=== PATIENT | female | born 1975 | race Caucasian/White ===

== ENCOUNTER → 2021-05-08 | Outpatient (CLI) | payer SELFPAY | END | disposition home or self-care (01) | LOC: LABSPEC 15:58 | PROVIDERS: Visit Provider Obstetrics & Gynecology | DX: N76.1 Subacute and chronic vaginitis (principal); Z12.4 Encounter for screening for malignant neoplasm of cervix | CPT/HCPCS: 87070; 87075; 87077; 87186; 87205; 88175; G0145 ==

== ENCOUNTER → 2023-10-08 | Outpatient (CLI) | payer BC, SELFPAY ==
[2023-10-08 16:17] LABS: Absolute Lymphocyte Count 1.36 X10^3/uL (0.83-4.51); Absolute Neutrophil Count 4.5 X10^3/uL (2.0-7.7); Basophil# 0.04 X10^3/uL; Basophil% 0.6 % (0-1); Eosinophil# 0.61 X10^3/uL; Eosinophils% 8.8 % (0-5); Hemoglobin 10.3 g/dL (12.0-15.0); Lymphocyte # 1.36 X10^3/ul (0.83-4.51); Lymphocyte % 19.5 % (19-41); Mean Corp Hgb Conc 30.3 g/dL (32-36); Mean Corpuscular Hgb 22.2 pg (27.0-32.0); Mean Corpuscular Volume 73.4 fL (81-99); Mean Platelet Vol. 10.2 fl (6.2-12.0); Monocyte# 0.46 X10^3/uL; Monocyte% 6.6 % (0-10); NRBC Flagged by Analyzer 0 % (0-5); Neutrophil # 4.46 X10^3/uL (2.7-7.7); Neutrophil % 64.1 % (47-70); Platelet Count 356 K/mm3 (150-450); RBC Distribution Width CV 17.9 % (11.6-14.6); RBC Distribution Width SD 47.5 fl (35.1-43.9); Red Blood Count 4.63 M/mm3 (4.2-5.4)
[2023-10-08 16:46] LABS: Erythrocyte Sedimentation Rate 5 mm/hr (0-30)
[2023-10-08 17:04] LABS: Vitamin B12 407 pg/mL (211-911)
[2023-10-08 17:30] LABS: AST(SGOT) 23 U/L (15-37); Alanine Aminotransfer ALT/SGPT 26 U/L (13-56); Albumin, Serum 3.7 g/dL (3.2-5.0); Alkaline Phosphatase 59 U/L (45-117); Anion Gap 5 (5-15); BUN 12 mg/dL (7-18); BUN/Creat Ratio 14.2 RATIO (10-20); CRP < 2.90 mg/L (0.0-3.0); Chloride 109 mmol/L (98-107); Creatinine, Serum 0.84 mg/dL (0.55-1.02); EST Glomerular Filtration Rate 76 mL/min (>60); Est Glom Filt Rate - Afr Amer 92 mL/min (>60); Ferritin 4 ng/mL (8-252); Globulin 3.7 g/dL (2.2-4.2); Glucose 97 mg/dL (74-106); Iron 14 ug/dL (50-170); Potassium 3.5 mmol/L (3.5-5.1); Protein, Total 7.4 g/dL (6.4-8.2); Sodium Level 138 mmol/L (136-145)
== END | disposition home or self-care (01) ==
PROVIDERS: PCP Family Medicine; Referring Provider Family Medicine; Visit Provider Family Medicine
DX: K50.90 Crohn's disease, unspecified, without complications (principal); G25.81 Restless legs syndrome; E53.8 Deficiency of other specified B group vitamins; D50.9 Iron deficiency anemia, unspecified; Z51.81 Encounter for therapeutic drug level monitoring
CPT/HCPCS: 36415; 80053; 82607; 82728; 82746; 83540; 85025; 85652; 86140

== ENCOUNTER → 2024-12-27 | Outpatient (CLI) | payer BC, SELFPAY ==
[2024-12-27 08:06] LABS: Erythrocyte Sedimentation Rate 15 mm/hr (0-30)
[2024-12-27 08:08] LABS: Absolute Lymphocyte Count 1.49 X10^3/uL (0.83-4.51); Absolute Neutrophil Count 5.3 X10^3/uL (2.0-7.7); Basophil# 0.05 X10^3/uL; Basophil% 0.6 % (0-1); Eosinophil# 0.41 X10^3/uL; Eosinophils% 5.2 % (0-5); Hematocrit 36.6 % (37-47); Hemoglobin 11.5 g/dL (12.0-15.0); Lymphocyte # 1.49 X10^3/ul (0.83-4.51); Mean Corp Hgb Conc 31.4 g/dL (32-36); Mean Corpuscular Hgb 23.1 pg (27.0-32.0); Mean Corpuscular Volume 73.5 fL (81-99); Mean Platelet Vol. 9.8 fl (6.2-12.0); Monocyte# 0.61 X10^3/uL; Monocyte% 7.8 % (0-10); NRBC Flagged by Analyzer 0 % (0-5); Neutrophil # 5.25 X10^3/uL (2.7-7.7); Neutrophil % 67.1 % (47-70); Platelet Count 348 K/mm3 (150-450); Red Blood Count 4.98 M/mm3 (4.2-5.4); White Blood Count 7.8 K/mm3 (4.4-11.0)
[2024-12-27 08:42] LABS: ALB/GLOB Ratio 1.3 RATIO (0.9-2.4); AST(SGOT) 19 U/L (<=31); Alanine Aminotransfer ALT/SGPT 13 U/L (<=34); Albumin, Serum 4.4 g/dL (3.5-5.0); Alkaline Phosphatase 71 U/L (35-104); Anion Gap 12 (5-15); BUN 16 mg/dL (4-19); BUN/Creat Ratio 14.8 RATIO (10-20); Calcium,Total 9.7 mg/dL (7.6-11.0); Carbon Dioxide 19.7 mmol/L (21.0-32.0); Chloride 106 mmol/L (98-108); Creatinine, Serum 1.07 mg/dL (0.70-1.20); EST Glomerular Filtration Rate 63 (>60); Globulin 3.3 g/dL (2.2-4.2); Glucose 95 mg/dL (70-99); Potassium 3.9 mmol/L (3.3-5.1); Protein, Total 7.6 g/dL (5.9-8.4); Sodium Level 138 mmol/L (133-145); Total Bilirubin 0.35 mg/dL (0.00-1.30); Vitamin B12 415 pg/mL (180-914); Vitamin D,25 Hydroxy 43.4 ng/mL (30-100)
[2024-12-27 11:32] LABS: CRP < 3.00 mg/L (0.0-3.0)
== END | disposition home or self-care (01) ==
PROVIDERS: PCP Family Medicine; Referring Provider Nurse Practitioner Family; Visit Provider Nurse Practitioner Family
DX: E53.8 Deficiency of other specified B group vitamins (principal); K50.90 Crohn's disease, unspecified, without complications; Z51.81 Encounter for therapeutic drug level monitoring; G25.81 Restless legs syndrome; E55.9 Vitamin D deficiency, unspecified
CPT/HCPCS: 36415; 80053; 82306; 82607; 85025; 85652; 86140

== ENCOUNTER → 2025-06-17 | Outpatient (CLI) | payer BC, SELFPAY ==
--- OUTSIDE RECORDS SUMMARY | 2025-06-17 12:31 | XMS RPT_ITS | CCD ---
Author Organization [facility] Care Team Providers Care Lacquerer Name Role Phone Unavailable Primary Care Provider Dr. Lisseth Hoffamn DO Primary Care Provider [phone] Brock [employer]AL [employer]EMAN-CAnn Attending Provider Brock ROMERO-Ann Kat Referring Provider [phone] Lisseth Queen Primary Care Unavailable Ann Gutiérrez Referring Unavailable Ann Gutiérrez Attending Unavailable Allergies Allergy Classification Reported Allergen(s) Allergy Type Date of Onset Reaction(s) Facility (7 sources) Acetaminophen / oxyCODONE Drug Allergy 0 [facility] Work Phone: (7 sources) Porcupine silk preparation Drug Allergy 0 Itching [facility] (7 sources) peanut Food Intolerance 0 Itching [facility] (3 sources) peanut allergenic extract Drug Allergy 0 Itching [facility] (4 sources) Acetaminophen Drug Allergy 7 Itching [facility] Work Phone: Medications Current Medications Medication Drug Class(es) Dates Sig (Normalized) Sig (Original) clindamycin 300 mg oral capsule (1 source) Lincosamide Antibacterial Start: 02-13-2022 End: 02-20-2022 take 1 capsule by mouth every eight hours clindamycin (CLEOCIN) 300 mg capsule Indications: Streptococcus infection, group B Take 1 capsule by mouth every 8 hours for 7 days. 21 capsule 0 02/13/2022 02/20/2022 Active Comment on above: Take 1 capsule by [facility] every 8 hours for 7 days. Ethinyl Estradiol / norgestimate (4 sources) Progestin, Estrogen Start: 04-13-2007 take 1 tablet by mouth once daily ORTHO TRI-CYCLEN LO 0.025 MG OR TABS Indications: Other general counseling and advice for contraceptive management 1 TABLET DAILY 3 3 04/13/2007 Active metroNIDAZOLE 0.0075 mg/mg vaginal gel (4 sources) Nitroimidazole Antimicrobial Start: 04-13-2007 METROGEL VAGINAL 0.75 % VA GEL Indications: Vaginitis and vulvovaginitis, unspecified 1 applicator full at bedtime for 7 days then 2x/wk qhs thereafter 1 45g tube 3 04/13/2007 Active OSTOMY SUPPLIES POUCH MISC (4 sources) Start: 08-04-2007 OSTOMY SUPPLIES POUCH MISC use as directed 1 mth supply 12 08/04/2007 Active Completed/Discontinued Medications Medication Drug Class(es) Dates Sig (Normalized) Sig (Original) atenolol 50 mg oral tablet (5 sources) beta-Adrenergic Svitlana Start: 12-12-2009 End: 04-01-2022 atenolol (TENORMIN) 50 mg tablet Take by mouth. 0 12/12/2009 04/01/2022 Discontinued Comment on above: Take one(1) tablet d aily. Take by mouth. 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 1 mg, INTRAVENOUS, ONCE, Inject 1 mg intravenously, as directed. Slow push at the appropriate time during MRI Scan 1 Each 0 09/07/2021 01/11/2022 Discontinued (Course of therapy completed) Comment on above: Inject 1 mg intraven ously one time only for 1 dose. 1 mg, INTRAVENOUS, ONCE, Inject 1 mg intravenously, as directed. Slow push at the appropriate time during MRI Scan [id number] inc-succin (FERIVA 21-7) 75 mg iron-175 mg-1 mg-12 mcg tab (3 sources) Start: 02-14-2022 [id number]-V-[id number]-B12- zinc-succin (FERIVA 21-7) 75 mg iron-175 mg-1 mg-12 mcg tab Indications: Iron deficiency anemia, unspecified iron deficiency anemia type , Low iron 1 by mouth x 21 d, then 7 d break 56 tablet 1 02/14/2022 Active Comment on above: 1 by mouth x 21 d, t hen 7 d break Multivitamin capsule (6 sources) take 1 capsule by mouth once daily Multivitamin capsule Take 1 capsule by mouth once daily. 0 Active Comment on above: Take 1 capsule by [facility] once daily. tranexamic acid 650 mg oral tablet (1 source) Antifibrinolytic Agent Start: 04-01-2022 take 2 tablets by mouth three times daily tranexamic acid (LYSTEDA) 650 mg tablet Indications: menorrhagia 2 tabs po TID for 5 days during period 90 tablet 3 04/01/2022 Active Comment on above: 2 tabs po TID for 5 days during period triamcinolone acetonide 0.001 mg/mg topical ointment (2 sources) Corticosteroid Start: 02-01-2010 End: 01-11-2022 TRIAMCINOLONE ACETONIDE 0.1 % OINTMENT apply q daily for two weeks then twice per week 1 0 02/01/2010 01/11/2022 Discontinued Comment on above: apply q daily for tw o weeks then twice per week Problems Active Problems Problem Classification Problem Date Documented Date Episodic/Chronic Abdominal pain (2 sources) Pain in female pelvis; Translations: [Pelvic and perineal pain] Episodic Benign neoplasm of uterus (2 sources) Uterine leiomyoma; Translations: [Leiomyoma of uterus, unspecified] Episodic Cardiac dysrhythmias (7 sources) Paroxysmal tachycardia; Translations: [Paroxysmal tachycardia, unspecified] 10-24-2003 Chronic Cardiac dysrhythmias (7 sources) Palpitations; Translations: [Palpitations] 10-24-2003 Episodic Deficiency and other anemia (1 source) Iron deficiency anemia; Translations: [Other iron deficiency anemias] Episodic Essential hypertension (15 sources) Benign essential hypertension; Translations: [Essential (primary) hypertension] Onset: 04-06-2006 Resolved: 04-06-2006 10-24-2003 Chronic Headache; including migraine (4 sources) Headache; Translations: [Headache] 10-06-2018 Episodic Menstrual disorders (4 sources) Irregular periods; Translations: [Irregular menstruation, unspecified] Chronic Nutritional deficiencies (1 source) Deficiency of other specified B group vitamins; Translations: [Deficiency of other specified B group vitamins] Onset: 12-29-2024 Episodic Other disorders of stomach and duodenum (1 source) Gastrointestinal fistula; 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] Episodic Other endocrine disorders (7 sources) Disorder of adrenal gland; Translations: [Disorder of adrenal gland, unspecified] Onset: 12-14-2001 10-24-2003 Chronic Other female genital disorders (1 source) Vaginal discharge; Translations: [Other specified noninflammatory disorders of vagina] Episodic Other female genital disorders (1 source) Vaginal odor; Translations: [Other specified noninflammatory disorders of vagina] Episodic Other screening for suspected conditions (not mental disorders or infectious disease) (1 source) Patient encounter status; Translations: [Encounter for screening mammogram for malignant neoplasm of breast] Episodic Ovarian cyst (1 source) Cyst of bilateral ovaries; Translations: [Unspecified ovarian cyst, right side] Episodic Regional enteritis and ulcerative colitis (16 sources) Crohn's disease of large bowel; Translations: [Crohn's disease of large intestine with fistula] Onset: 12-29-2006 Chronic Past or Other Problems Problem Classification Problem Date Documented Da te Episodic/Chronic Gastritis and duodenitis (7 sources) Acute gastritis; Translations: [Acute gastritis without bleeding] Onset: 01-02-2010 01-02-2010 Episodic Genitourinary symptoms and ill-defined conditions (4 sources) Proteinuria; Translations: [Proteinuria, unspecified] Onset: 04-06-2006 10-06-2018 Episodic Nausea and vomiting (7 sources) Nausea; Translations: [Nausea] Onset: 01-02-2010 01-02-2010 Episodic Urinary tract infections (4 sources) Urinary tract infectious disease; Translations: [Urinary tract infection, site not specified] Onset: 01-20-2006 08-16-2021 Episodic Results Test Name Value Interpretation Reference Range Facility Absolute lymphocyte countOrd ered By: Ann Gutiérrez on 12-27-2024 Lymphocytes Auto (Unsp spec) [#/Vol] 1.49 10*3/uL 0.83-4.51 [facility] Absolute neutrophil countOrd ered By: Ann Gutiérrez on 12-27-2024 Neutrophils (Bld) [#/Vol] 5.3 10*3/uL 2.0-7.7 [facility] Anion gap in Serum or Plasma Ordered By: Ann Gutiérrez on 12-27-2024 Anion gap [Moles/Vol] 12 mmol/L 5- [facility] Automated lymphocyte count a s percentage of total leukocytesOrdered By: Annjerry Gutiérrez on 12-27-2024 Lymphocytes/100 WBC Auto (Unsp spec) 19.0 % - [facility] BUN/creatinine ratioOrdered By: [place] Brock on 12-27-2024 Urea nitrogen/Creatinine [Mass ratio] 14.8 mg/mg 10- [facility] Basophil percentageOrdered B y: Ann Gutiérrez on 12-27-2024 Basophils/100 WBC (Bld) 0.6 % 0-1 [facility] Bilirubin, totalOrdered By: Annjerry Gutiérrez on 12-27-2024 Bilirubin [Mass/Vol] 0.35 mg/dL 0.00-1.30 [facility] CBC W/Diff, Automatedon 11-30 Absolute Lymph 1.49 X10 3/uL Normal 0.83-4.51 [facility] Comment on above: Performed By: #### L 503.0106, L100.0100, L501.6710, L500.4050, L101.9900, L506.1001 #### [facility] [address] [place], [address] Absolute Neut 5.3 X10 3/uL Normal 2.0-7.7 [facility] Comment on above: Performed By: #### L 503.0106, L100.0100, L501.6710, L500.4050, L101.9900, L506.1001 #### [facility] [address] [place], [address] Basophils/100 WBC (Bld) 0.6 % Normal 0-1 [facility] Comment on above: Performed By: #### L 503.0106, L100.0100, L501.6710, L500.4050, L101.9900, L506.1001 #### [facility] [address] [place], [address] Eosinophils/100 WBC (Bld) 5.2 % High 0-5 [facility] Comment on above: Performed By: #### L 503.0106, L100.0100, L501.6710, L500.4050, L101.9900, L506.1001 #### [facility] [address] [place], [address] Erythrocyte distribution width (RBC) [Ratio] 20.0 % High 11.6-14.6 [facility] Comment on above: Performed By: #### L 503.0106, L100.0100, L501.6710, L500.4050, L101.9900, L506.1001 #### [facility] [address] [place], [address] Hematocrit (Bld) [Volume fraction] 36.6 % Low 37-47 [facility] Comment on above: Performed By: #### L 503.0106, L100.0100, L501.6710, L500.4050, L101.9900, L506.1001 #### [facility] [address] [place], [address] Hemoglobin (Bld) [Mass/Vol] 11.5 g/dL Low 12.0-15.0 [facility] Comment on above: Performed By: #### L 503.0106, L100.0100, L501.6710, L500.4050, L101.9900, L506.1001 #### [facility] [address] [place], [address] IG% 0.300 Normal 0.0-0.9 [facility] Comment on above: Result Comment: IG% - Immature Granulocytes (promyelocytes, myelocytes and metamyelocytes) > 1% indicates that a LEFT SHIFT is Present. Performed By: #### L 503.0106, L100.0100, L501.6710, L500.4050, L101.9900, L506.1001 #### [facility] [address] [place], [address] Lymphocytes/100 WBC (Bld) 19.0 % Normal 19-41 [facility] Comment on above: Performed By: #### L 503.0106, L100.0100, L501.6710, L500.4050, L101.9900, L506.1001 #### [facility] [address] [place], [address] MCH (RBC) [Entitic mass] 23.1 pg Low 27.0-32.0 [facility] Comment on above: Performed By: #### L 503.0106, L100.0100, L501.6710, L500.4050, L101.9900, L506.1001 #### [facility] [address] [place], [address] MCHC (RBC) [Mass/Vol] 31.4 g/dL Low 32-36 [facility] Comment on above: Performed By: #### L 503.0106, L100.0100, L501.6710, L500.4050, L101.9900, L506.1001 #### [facility] [address] [place], [address] MCV (RBC) [Entitic vol] 73.5 fL Low 81-99 [facility] Comment on above: Performed By: #### L 503.0106, L100.0100, L501.6710, L500.4050, L101.9900, L506.1001 #### [facility] [address] [place], [address] Monocytes/100 WBC (Bld) 7.8 % Normal 0-10 [facility] Comment on above: Performed By: #### L 503.0106, L100.0100, L501.6710, L500.4050, L101.9900, L506.1001 #### [facility] [address] [place], [address] Neutrophils/100 WBC (Bld) 67.1 % Normal 47-70 [facility] Comment on above: Performed By: #### L 503.0106, L100.0100, L501.6710, L500.4050, L101.9900, L506.1001 #### [facility] [address] [place], [address] Nucleated RBC (Bld) [#/Vol] 0 10*3/uL Normal 0-5 [facility] Comment on above: Performed By: #### L 503.0106, L100.0100, L501.6710, L500.4050, L101.9900, L506.1001 #### [facility] [address] [place], [address] Platelet mean volume (Bld) [Entitic vol] 9.8 fL Normal 6.2-12.0 [facility] Comment on above: Performed By: #### L 503.0106, L100.0100, L501.6710, L500.4050, L101.9900, L506.1001 #### [facility] [address] [place], [address] Platelets (Bld) [#/Vol] 348 10*3/uL Normal 150-450 [facility] Comment on above: Performed By: #### L 503.0106, L100.0100, L501.6710, L500.4050, L101.9900, L506.1001 #### [facility] [address] [place], [address] RBC (Bld) [#/Vol] 4.98 10*6/uL Normal 4.2-5.4 [facility] Comment on above: Performed By: #### L 503.0106, L100.0100, L501.6710, L500.4050, L101.9900, L506.1001 #### [facility] [address] [place], [address] RDW SD 52.0 fl High 35.1-43.9 [facility] Comment on above: Performed By: #### L 503.0106, L100.0100, L501.6710, L500.4050, L101.9900, L506.1001 #### [facility] [address] [place], [address] WBC (Bld) [#/Vol] 7.8 10*3/uL Normal 4.4-11.0 [facility] Comment on above: Performed By: #### L 503.0106, L100.0100, L501.6710, L500.4050, L101.9900, L506.1001 #### [facility] [address] [place], [address] CRPon 12-27-2024 C-REACTIVE PROT < 3.00 Normal 0.0-3.0 [facility] Comment on above: Performed By: #### L 503.0106, L100.0100, L501.6710, L500.4050, L101.9900, L506.1001 #### [facility] [address] [place], [address] Carbon dioxide, total [Moles /volume] in Central venous bloodOrdered By: Ann Gutiérrez on 12-27-2024 CO2 [Moles/Vol] 19.7 mmol/L Low 21.0-32.0 [facility] Chloride assayOrdered By: Ra vi Gutiérrez on 12-27-2024 Chloride [Moles/Vol] 106 mmol/L 98-108 [facility] Comprehensive Metabolic Prof ilon 12-27-2024 Albumin [Mass/Vol] 4.4 g/dL Normal 3.5-5.0 [facility] Comment on above: Performed By: #### L 503.0106, L100.0100, L501.6710, L500.4050, L101.9900, L506.1001 #### [facility] [address] [place], [address] Albumin/Globulin [Mass ratio] 1.3 {ratio} Normal 0.9-2.4 [facility] Comment on above: Performed By: #### L 503.0106, L100.0100, L501.6710, L500.4050, L101.9900, L506.1001 #### [facility] [address] [place], [address] ALK PHOS 71 U/L Normal 35-104 [facility] Comment on above: Performed By: #### L 503.0106, L100.0100, L501.6710, L500.4050, L101.9900, L506.1001 #### [facility] [address] [place], [address] ALT [Catalytic activity/Vol] 13 U/L Normal <=34 [facility] Comment on above: Performed By: #### L 503.0106, L100.0100, L501.6710, L500.4050, L101.9900, L506.1001 #### [facility] [address] [place], [address] AST [Catalytic activity/Vol] 19 U/L Normal <=31 [facility] Comment on above: Performed By: #### L 503.0106, L100.0100, L501.6710, L500.4050, L101.9900, L506.1001 #### [facility] [address] [place], [address] Bilirubin [Mass/Vol] 0.35 mg/dL Normal 0.00-1.30 [facility] Comment on above: Performed By: #### L 503.0106, L100.0100, L501.6710, L500.4050, L101.9900, L506.1001 #### [facility] [address] [place], [address] BUN/CRE 14.8 RATIO Normal 10-20 [facility] Comment on above: Performed By: #### L 503.0106, L100.0100, L501.6710, L500.4050, L101.9900, L506.1001 #### [facility] [address] [place], [address] Calcium [Mass/Vol] 9.7 mg/dL Normal 7.6-11.0 [facility] Comment on above: Performed By: #### L 503.0106, L100.0100, L501.6710, L500.4050, L101.9900, L506.1001 #### [facility] [address] [place], [address] Chloride [Moles/Vol] 106 mmol/L Normal 98-108 [facility] Comment on above: Performed By: #### L 503.0106, L100.0100, L501.6710, L500.4050, L101.9900, L506.1001 #### [facility] [address] [place], [address] CO2 [Moles/Vol] 19.7 mmol/L Low 21.0-32.0 [facility] Comment on above: Performed By: #### L 503.0106, L100.0100, L501.6710, L500.4050, L101.9900, L506.1001 #### [facility] [address] [place], [address] Creatinine [Mass/Vol] 1.07 mg/dL Normal 0.70-1.20 [facility] Comment on above: Performed By: #### L 503.0106, L100.0100, L501.6710, L500.4050, L101.9900, L506.1001 #### [facility] [address] [place], [address] GAP 12 Normal 5-15 [facility] Comment on above: Performed By: #### L 503.0106, L100.0100, L501.6710, L500.4050, L101.9900, L506.1001 #### [facility] [address] [place], [address] GFR/1.73 sq M.predicted among non-blacks MDRD (S/P/Bld) [Vol rate/Area] 63 mL/min/{1.73_m2} Normal >60 [facility] Comment on above: Result Comment: mL/m in/1.73m2 CKD-EPI Creatinine Equation (2020) Performed By: #### L 503.0106, L100.0100, L501.6710, L500.4050, L101.9900, L506.1001 #### [facility] [address] [place], [address] Globulin (S) [Mass/Vol] 3.3 g/dL Normal 2.2-4.2 [facility] Comment on above: Performed By: #### L 503.0106, L100.0100, L501.6710, L500.4050, L101.9900, L506.1001 #### [facility] [address] [place], [address] Glucose [Mass/Vol] 95 mg/dL Normal 70-99 [facility] Comment on above: Performed By: #### L 503.0106, L100.0100, L501.6710, L500.4050, L101.9900, L506.1001 #### [facility] [address] [place], [address] Potassium [Moles/Vol] 3.9 mmol/L Normal 3.3-5.1 [facility] Comment on above: Performed By: #### L 503.0106, L100.0100, L501.6710, L500.4050, L101.9900, L506.1001 #### [facility] [address] [place], [address] Sodium [Moles/Vol] 138 mmol/L Normal 133-145 [facility] Comment on above: Performed By: #### L 503.0106, L100.0100, L501.6710, L500.4050, L101.9900, L506.1001 #### [facility] [address] [place], [address] T PROT 7.6 g/dL Normal 5.9-8.4 [facility] Comment on above: Performed By: #### L 503.0106, L100.0100, L501.6710, L500.4050, L101.9900, L506.1001 #### [facility] [address] [place], [address] Urea nitrogen [Mass/Vol] 16 mg/dL Normal 4-19 [facility] Comment on above: Performed By: #### L 503.0106, L100.0100, L501.6710, L500.4050, L101.9900, L506.1001 #### [facility] [address] [place], [address] Eosinophil percentageOrdered By: Ann Gutiérrez on 12-27-2024 Eosinophils/100 WBC (Bld) 5.2 % High 0-5 [facility] Erythrocyte Sed Rateon 12-27 SED RATE 15 mm/hr Normal 0-30 [facility] Comment on above: Performed By: #### L 503.0106, L100.0100, L501.6710, L500.4050, L101.9900, L506.1001 #### [facility] [place], [address] Erythrocyte distribution wid th ratioOrdered By: Ann Gutiérrez on 12-27-2024 Erythrocyte distribution width (RBC) [Ratio] 20.0 % High 11.6-14.6 [facility] Erythrocyte distribution wid th standard deviationOrdered By: [place] Brock on 12-27-2024 Erythrocyte distribution width (RBC) [Ratio] 52.0 fl High 35.1-43.9 [facility] Erythrocyte sedimentation ra teOrdered By: [facility] on [facility]-27-2024 ESR (Bld) [Velocity] 15 mm/h 0-30 [facility] Glomerular filtration rate ( GFR) estimation/1.73 sq m using serum, plasma, or whole bOrdered By: [facility] on 12-27-2024 GFR/1.73 sq M.predicted among non-blacks MDRD (S/P/Bld) [Vol rate/Area] 63 mL/min/{1.73_m2} >60 [facility] Comment on above: mL/min/1.73m2 CKD-EP I Creatinine Equation (2020) Hematocrit Auto (Bld) [Volum e fraction]Ordered By: [facility] on 12-27-2024 Hematocrit (Bld) [Volume fraction] 36.6 % Low 37-47 [facility] Hemoglobin measurementOrdere d By: [facility] on 12-27-2024 Hemoglobin (Bld) [Mass/Vol] 11.5 g/dL Low 12.0-15.0 [facility] Immature granulocytes/100 WB C Auto (Bld)Ordered By: Ann Brock on 12-27-2024 Immature granulocytes/100 WBC (Bld) 0.300 % 0.0-0.9 [facility] Comment on above: IG% - Immature Granu locytes (promyelocytes, myelocytes and metamyelocytes) > 1% indicates that a LEFT SHIFT is Present. Laboratory - Chemistry and C hemistry - challengeOrdered By: Ann Brock on 12-27-2024 AST [Catalytic activity/Vol] 19 U/L <32 [facility] MCV (mean corpuscular volume ) determinationOrdered By: Ann Gutiérrez on 12-27-2024 MCV (RBC) [Entitic vol] 73.5 fL Low 81-99 [facility] Mean corpuscular hemoglobin (MCH) determinationOrdered By: Ann Gutiérrez on 12-27-2024 MCH (RBC) [Entitic mass] 23.1 pg Low 27.0-32.0 [facility] Mean corpuscular hemoglobin concentration (MCHC) determinationOrdered By: Ann Gutiérrez on 12-27-2024 MCHC (RBC) [Mass/Vol] 31.4 g/dL Low 32-36 [facility] Mean platelet volume determi nationOrdered By: Ann Gutiérrez on 12-27-2024 Platelet mean volume (Bld) [Entitic vol] 9.8 fL 6.2-12.0 [facility] Monocyte percentageOrdered B y: Ann Gutiérrez on 12-27-2024 Monocytes/100 WBC (Bld) 7.8 % 0-10 [facility] Neutrophil percentageOrdered By: Ann Gutiérrez on 12-27-2024 Neutrophils/100 WBC (Bld) 67.1 % 47-70 [facility] Nucleated red blood cell per centageOrdered By: Ann Gutiérrez on 12-27-2024 Nucleated RBC/100 WBC (Bld) [Ratio] 0 % 0-5 [facility] Platelet countOrdered By: Ra vi Gutiérrez on 12-27-2024 Platelets (Bld) [#/Vol] 348 10*3/uL 150-450 [facility] Potassium measurement (mass/ volume)Ordered By: Ann Gutiérrez on 12-27-2024 Potassium (Unsp spec) [Mass/Vol] 3.9 mmol/L 3.3-5.1 [facility] RBC Auto (Bld) [#/Vol]Ordere d By: Ann Gutiérrez on 12-27-2024 RBC (Bld) [#/Vol] 4.98 10*6/uL 4.2-5.4 [facility] Serum creatinine measurement (mass/volume)Ordered By: Ann Gutiérrez on 12-27-2024 Creatinine [Mass/Vol] 1.07 mg/dL 0.70-1.20 [facility] Serum globulin measurementOr dered By: Ann Gutiérrez on 12-27-2024 Globulin (S) [Mass/Vol] 3.3 g/dL 2.2-4.2 [facility] Serum glucose measurement (m ass/volume)Ordered By: Ann Gutiérrez on 12-27-2024 Glucose [Mass/Vol] 95 mg/dL 70-99 [facility] Serum or plasma C reactive p rotein measurement (mass/volume)Ordered By: Ann Gutiérrez on 12-27-2024 CRP [Mass/Vol] mg/L 0.0-3.0 [facility] Serum or plasma alanine nance otransferase (ALT) measurementOrdered By: Ann Gutiérrez on 12-27-2024 ALT [Catalytic activity/Vol] 13 U/L <35 [facility] Serum or plasma albumin hanane urement (mass/volume)Ordered By: Ann Gutiérrez on 12-27-2024 Albumin [Mass/Vol] 4.4 g/dL 3.5-5.0 [facility] Serum or plasma albumin/glob ulin mass ratioOrdered By: Ann Gutiérrez on 12-27-2024 Albumin/Globulin [Mass ratio] 1.3 {ratio} 0.9-2.4 [facility] Serum or plasma alkaline antoni sphatase measurementOrdered By: Ann Gutiérrez on 12-27-2024 ALP [Catalytic activity/Vol] 71 U/L 35-104 [facility] Serum or plasma calcium hanane urement (mass/volume)Ordered By: Ann Gutiérrez on 12-27-2024 Calcium [Mass/Vol] 9.7 mg/dL 7.6-11.0 [facility] Serum or plasma urea nitroge n measurement (mass/volume)Ordered By: Ann Gutiérrez on 12-27-2024 Urea nitrogen [Mass/Vol] 16 mg/dL 4-19 [facility] Sodium levelOrdered By: Viridiana Gutiérrez on 12-27-2024 Sodium [Moles/Vol] 138 mmol/L 133-145 [facility] Total proteinOrdered By: Vicki Gutiérrez on 12-27-2024 Protein [Mass/Vol] 7.6 g/dL 5.9-8.4 [facility] Vitamin B12on 12-27-2024 Cobalamin (Vitamin B12) [Mass/Vol] 415 pg/mL Normal 180-914 [facility] Comment on above: Performed By: #### L 503.0106, L100.0100, L501.6710, L500.4050, L101.9900, L506.1001 #### [facility] [address], [place], [id number] Vitamin B12 ser/plasOrdered By: Ann Gutiérrez on 12-27-2024 Cobalamin (Vitamin B12) [Mass/Vol] 415 pg/mL 180-914 [facility] Vitamin D,25 Hydroxyon 12-27 Vitamin D 25-OH 43.4 ng/mL Normal 30-100 [facility] Comment on above: Result Comment: Olga min D Status Deficiency: <20 ng/mL (50nmol/L) Insufficiency: 20-30 ng/mL (50-75 nmol/L) Sufficiency: 30-100 ng/mL (75-250 nmol/L) Toxicity: >100 ng/mL (>250 nmol/L) Performed By: #### L 503.0106, L100.0100, L501.6710, L500.4050, L101.9900, L506.1001 #### [facility] [address] [place], [place], [id number] White blood cell (WBC) count Ordered By: Ann Gutiérrez on 12-27-2024 WBC (Bld) [#/Vol] 7.8 10*3/uL 4.4-11.0 [facility] Absolute lymphocyte countOrd ered By: Lisseth Queen on 10-08-2023 Lymphocytes Auto (Unsp spec) [#/Vol] 1.36 10*3/uL 0.83-4.51 [facility] Automated lymphocyte count a s percentage of total leukocytesOrdered By: Lisseth Queen on 10-08-2023 Lymphocytes/100 WBC Auto (Unsp spec) 19.5 % 19-41 [facility] Basophil percentageOrdered B y: Lisseth Queen on 10-08-2023 Basophils/100 WBC (Bld) 0.6 % 0-1 [facility] Bilirubin [Mass/Vol] 0.40 mg/dL 0.20-1.00 [facility] Comment on above: For patients on eltr ombopag therapy, use of Dimension [place] TBIL is not recommended. Chloride [Moles/Vol] 109 mmol/L 98-107 [facility] Eosinophils/100 WBC (Bld) 8.8 % 0-5 [facility] Glucose [Mass/Vol] 97 mg/dL 74-106 [facility] Hemoglobin (Bld) [Mass/Vol] 10.3 g/dL 12.0-15.0 [facility] Monocytes/100 WBC (Bld) 6.6 % 0-10 [facility] Neutrophils (Bld) [#/Vol] 4.5 10*3/uL 2.0-7.7 [facility] Neutrophils/100 WBC (Bld) 64.1 % 47-70 [facility] Potassium [Moles/Vol] 3.5 mmol/L 3.5-5.1 [facility] Protein [Mass/Vol] 7.4 g/dL 6.4-8.2 [facility] Sodium [Moles/Vol] 138 mmol/L 136-145 [facility] WBC (Bld) [#/Vol] 7.0 10*3/uL 4.4-11.0 [facility] Determination of erythrocyte mean corpuscular volume (MCV)Ordered By: Lisseth Queen on 10-08-2023 MCV (RBC) [Entitic vol] 73.4 fL 81-99 [facility] Erythrocyte distribution wid th ratioOrdered By: Lisseth Queen on 10-08-2023 Erythrocyte distribution width (RBC) [Ratio] 17.9 % 11.6-14.6 [facility] Erythrocyte distribution wid th standard deviationOrdered By: Lisseth Queen on 10-08-2023 Erythrocyte distribution width (RBC) [Entitic vol] 47.5 fL 35.1-43.9 [facility] Erythrocyte sedimentation ra teOrdered By: Lisseth Queen on 10-08-2023 ESR (Bld) [Velocity] 5 mm/h 0-30 [facility] Hematocrit Auto (Bld) [Volum e fraction]Ordered By: Lisseth Queen on 10-08-2023 Hematocrit (Bld) [Volume fraction] 34.0 % 37-47 [facility] Immature granulocytes/100 WB C Auto (Bld)Ordered By: Lisseth Queen on 10-08-2023 Immature granulocytes/100 WBC (Bld) 0.400 % 0.0-0.9 [facility] Comment on above: IG% - Immature Granu locytes (promyelocytes, myelocytes and metamyelocytes) > 1% indicates that a LEFT SHIFT is Present. Iron measurement (mass/mass) Ordered By: Lisseth Queen on 10-08-2023 Iron (Unsp spec) [Mass/Mass] 14 ug/dL 50-170 [facility] - Chemistry and C hemistry - challengeOrdered By: Lisseth Queen on 10-08-2023 Albumin/Globulin [Mass ratio] 1.0 {ratio} 0.9-2.4 [facility] ALP [Catalytic activity/Vol] 59 U/L 45-117 [facility] ALT [Catalytic activity/Vol] 26 U/L 13-56 [facility] CO2 [Moles/Vol] 24.0 mmol/L 21.0-32.0 [facility] Cobalamin (Vitamin B12) [Mass/Vol] 407 pg/mL 211-911 [facility] Ferritin [Mass/Vol] 4 ng/mL 8-252 [facility] Globulin (S) [Mass/Vol] 3.7 g/dL 2.2-4.2 [facility] Urea nitrogen/Creatinine [Mass ratio] 14.2 mg/mg 10-20 [facility] - Hematology and Cell countsOrdered By: Lisseth Queen on 10-08-2023 MCH (RBC) [Entitic mass] 22.2 pg 27.0-32.0 [facility] MCHC (RBC) [Mass/Vol] 30.3 g/dL 32-36 [facility] Nucleated RBC/100 WBC (Bld) [Ratio] 0 % 0-5 [facility] Platelet mean volume (Bld) [Entitic vol] 10.2 fL 6.2-12.0 [facility] Platelets (Bld) [#/Vol] 356 10*3/uL 150-450 [facility] No Panel InformationOrdered By: Lisseth Queen on 10-08-2023 C-Reactive Protein Extended Range < 2.90 mg/L 0.0-3.0 [facility] Comment on above: C-Reactive Protein ( CRP) provides useful information for thediagnosis, therapy and monitoring of inflammatory processesand associated diseases. For the evaluation of Relative Riskfor Cardiovascular Disease, a High Sensitivity CRP (HSCRP)should be ordered. Estimated GFR (MDRD) Amer 92 mL/min >60 [facility] Comment on above: GFR Calc Estimated GFR (MDRD) Non-Af Amer 76 mL/min >60 [facility] Comment on above: Non- GFR Calc Folate 6.80 ng/mL 3.1-55.4 [facility] RBC Auto (Bld) [#/Vol]Ordere d By: Lisseth Queen on 10-08-2023 RBC (Bld) [#/Vol] 4.63 10*6/uL 4.2-5.4 [facility] Serum or plasma calcium hanane urement (mass/volume)Ordered By: Lisseth Queen on 10-08-2023 Calcium [Mass/Vol] 9.0 mg/dL 8.5-10.1 [facility] Serum or plasma creatinine m easurement (mass/volume)Ordered By: Lisseth Queen on 10-08-2023 Creatinine [Mass/Vol] 0.84 mg/dL 0.55-1.02 [facility] Comment on above: The validity of the calculated GFR & GFRAA in patients over 70 years has not been determined. Clinical correlation is essential. Serum or plasma urea nitroge n measurement (mass/volume)Ordered By: Lisseth Queen on 10-08-2023 Urea nitrogen [Mass/Vol] 12 mg/dL 7-18 [facility] Thin prep Papanicolaou smear with manual screeningOrdered By: Lisseth Queen on 10-08-2023 Thin prep Papanicolaou smear with manual screening 3.7 g/dL 3.2-5.0 [facility] Thin prep Papanicolaou smear with manual screening 23 U/L 15-37 [facility] Thin prep Papanicolaou smear with manual screening 5 5-15 [id number] ([id number]) 1975 F Date Time Provider Department 02/18/22 ADRIANNE GRIFFITH [id number] During your visit today, we recorded the following information about you: Adrianne Griffith MD 02/18/2022 1:24 PM Signed Your vaginal testing shows E coli, BV, group B strep, ureaplasma and trichomonas. The clindamycin should have treated part of the infection. 2 other meds will be sent in and you should have your partner tested/treated for ureaplasma and trichomonas. We would like to see you back for a test of cure in 8 weeks. The following approved medication requests have been transmitted electronically. Requested Prescriptions Signed Prescriptions Disp Refills azithromycin (ZITHROMAX) 500 mg tablet 2 tablet 0 Si gram single dose or 2 500 mg tablets Authorizing Provider: ADRIANNE GRIFFITH metroNIDAZOLE (FLAGYL) 500 mg tablet 14 tablet 0 Sig: Take 1 tablet by mouth twice daily for 7 days. 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 - Multivitamin capsule Take 1 capsule by mouth once daily. Problem List As Of Date 02/18/2022 Noted Resolved PALPITATIONS [R00.2] REG ENTERIT SM/LG INTEST [K50.80] BENIGN HYPERTENSION [I10] PAROX TACHYCARDIA NOS [I47.9] ADRENAL DISORDER NOS [E27.9] 12/14/2001 Nausea Alone [R11.0] 01/02/2010 Acute Gastritis without Mention of Hemorrhage [*01/02/2010 Prescriptions ordered this encounter Disp Refills Start End AZITHROMYCIN 500 MG TABLET 2 ta* 0 02/18/2022 Si gram single dose or 2 500 mg tablets METRONIDAZOLE 500 MG TABLET 14 t* 0 02/18/2022 02/25/2022 Route: ORAL Sig: Take 1 tablet by mouth twice daily for 7 days. Encounter Status:Closed by PARADISE MATOS on 03/01/22 [facility] Amaury 02-15-2022 [facility] Telephone ([id number]) EVAN DORAN ([id number]) 1975 F Date Time Provider Department 02/15/22 ADRIANNE GRIFFITH [id number] During your visit today, we recorded the following information about you: Kaelyn Rebolledo 02/15/2022 9:55 AM Signed ----- Message from Adrianne Griffith MD sent at 02/14/2022 4:21 PM EDT ----- Please call patient. Your thyroid profile is normal. Your CBC shows anemia and low ferritin or iron stores. Oral iron is suggested; if not well tolerated; could consider iron infusions. A prescription for oral iron will be sent to your pharmacy. Vit D is low; 5000 units/d vit D3 is suggested x 2 months, then recheck. When normal 2000 units/d vit D3 should maintain normal levels. CMP shows slightly elevated creatinine (a kidney function test). Liver, blood sugar, calcium and electrolytes are normal. MD Kaelyn Carrera 02/15/2022 9:57 AM Signed Left message to return call to office. Kaelyn Rebolledo 02/15/2022 10:16 AM Signed Patient returned call and was notified of message below regarding LAB results per provider. Patient acknowledged understanding of instructions and has no further questions. Kaelyn Rebolledo Allergies As of Date: 02/15/2022 Noted Allergy Reaction CORN 12/12/2009 9 - Itching PEANUT 12/12/2009 9 - Itching PEANUTS 12/12/2009 9 - Itching PERCOCET (OXYCODONE-ACETAMINOP HEN)12/20/2009 Date Reviewed: 02/13/2022 Reviewed by: Adrianne Griffith MD - Fully Assessed Reason for Visit: Results [95] Prescriptions as of 02/15/2022 - vats-Y-ujardy-B12-zin c-succin (FERIVA 21-7) 75 mg iron-175 mg-1 mg-12 mcg tab 1 by mouth x 21 d, then 7 d break - atenolol (TENORMIN) 50 mg tablet Take by mouth. - clindamycin (CLEOCIN) 300 mg capsule Take 1 capsule by mouth every 8 hours for 7 days. - Multivitamin capsule Take 1 capsule by mouth once daily. Problem List As Of Date 02/15/2022 Noted Resolved PALPITATIONS [R00.2] REG ENTERIT SM/LG INTEST [K50.80] BENIGN HYPERTENSION [I10] PAROX TACHYCARDIA NOS [I47.9] ADRENAL DISORDER NOS [E27.9] 12/14/2001 Nausea Alone [R11.0] 01/02/2010 Acute Gastritis without Mention of Hemorrhage [*01/02/2010 Encounter Status:Closed by KAELYN REBOLLEDO on 02/15/22 [facility] Telephone (OBGYWM) EVAN DORAN ([id number]) 1975 F Date Time Provider Department 01/23/22 KAELYN STEIN During your visit today, we recorded the following information about you: Kaelyn Stein APRN.[facility] 01/23/2022 4:17 PM Signed Message left on patient's phone -many different urogenital bacteria noted on culture. None that need treated today. Kaelyn Stein APRN.[facility] Allergies As of Date: 01/23/2022 Noted Allergy Reaction CORN 12/12/2009 9 - Itching PEANUTS 12/12/2009 9 - Itching PERCOCET (OXYCODONE-ACETAMINOP HEN)12/20/2009 Date Reviewed: 01/11/2022 Reviewed by: Kaelyn Stein APRN.[facility] - Fully Assessed Reason for Visit: Results [95] Prescriptions as of 01/23/2022 - Multivitamin capsule Take 1 capsule by mouth once daily. Problem List As Of Date 01/23/2022 Noted Resolved PALPITATIONS [R00.2] REG ENTERIT SM/LG INTEST [K50.80] BENIGN HYPERTENSION [I10] PAROX TACHYCARDIA NOS [I47.9] ADRENAL DISORDER NOS [E27.9] 12/14/2001 Nausea Alone [R11.0] 01/02/2010 Acute Gastritis without Mention of Hemorrhage [*01/02/2010 Encounter Status:Closed by KAELYN STEIN on 01/23/22 [facility] 01-16-2022 [facility] Telephone (OBGYWM) BETHEVAN ([id number]) 1975 F Date Time Provider Department 01/16/22 KAELYN STEIN During your visit today, we recorded the following information about you: Delmi Jenkins RN 01/16/2022 10:45 AM Signed Patient viewed results from 01/11/22 appointment. Asking what these results mean. Delmi Stein APRN.[employer] 01/16/2022 3:26 PM Signed One culture is still pending. I will contact her when I know more and if she needs treated for anything now. I may need to reach out to Dr Pradhan to see if she wants any treatment so it may be next week before I call her back. Kaelyn Stein APRN.TONYA Díaz RN 01/16/2022 3:34 PM Signed Left message for patient to return phone call Karen Morris LPN 01/16/2022 5:04 PM Signed Patient notified Allergies As of Date: 01/16/2022 Noted Allergy Reaction CORN 12/12/2009 9 - Itching PEANUTS 12/12/2009 9 - Itching PERCOCET (OXYCODONE-ACETAMINOP HEN)12/20/2009 Date Reviewed: 01/11/2022 Reviewed by: Kaelyn Stein APRN.[employer] - Fully Assessed Reason for Visit: Results [95] Prescriptions as of 01/17/2022 - Multivitamin capsule Take 1 capsule by mouth once daily. Problem List As Of Date 01/16/2022 Noted Resolved PALPITATIONS [R00.2] REG ENTERIT SM/LG INTEST [K50.80] BENIGN HYPERTENSION [I10] PAROX TACHYCARDIA NOS [I47.9] ADRENAL DISORDER NOS [E27.9] 12/14/2001 Nausea Alone [R11.0] 01/02/2010 Acute Gastritis without Mention of Hemorrhage [*01/02/2010 Encounter Status:Closed by DELMI JENKINS RN on 01/17/22 Normal [facility] Bacteria Spec Anaerobe Culto n 01-11-2022 Bacteria identified Anaer cx Nom (Unsp spec) ORGANISM ID: 1 Many Mixed anaerobic gina Normal [facility] Comment on above: Performed By: #### 6 35-3, 6462-6 ####[facility] LABCL[facility] [id number] [place] [id number] [facility] Bacteria Wnd Culton 01-12-20 22 Bacteria identified Cx Nom (Wound) ORGANISM ID: 1 Moderate Normal urogenital gina GRAM STAIN: Many Gram positive bacilli Many Gram negative bacilli Many Gram positive cocci No Polymorphonuclear Leukocytes Moderate Epithelial cells Abnormal [facility] Comment on above: Performed By: #### 6 35-3, 6462-6 ####[facility] LABCLIA [id number] [place] [id number] [facility] CNOVon 01-11-2022 CNOV Office Visit (OBGYWM ) BETHEVAN ([id number]) 1975 F Date Time Provider Department 01/11/22 1:30 PM KAELYN STEIN During your visit today, we recorded the following information about you: Blood pressure Weight Height Last Period 53.8 kg 1.613 m 12/19/21 Kaelyn Stein APRN.[employer] 01/11/2022 4:35 PM Signed Evan is a 46 year old who presents for an annual gynecologic exam with complaints, wondering about beginning menopause and increased vaginal discharge. Discharge is rust colored and occurs a few days before and after menses. Odor is an old blood odor and does not smell healthy. Smells musty. Takes bubble bath, uses [employer], wears yoga pants. Uses feminine products due to strong odor to discharge. MRI 07/2021 - fistula ruled out as cause of discharge. Also has bloating and pain. Crohn's disease with loop ileostomy. Pt brings vaginal culture results from outside gyne office 04/2021 showed increased bacteria but not treated with antibiotic. Results scanned into EHR. Gram stain final No gram negative diplococci Rare gram-positive cocci 1+ gram-positive rods 2+ gram-negative rods No cells seen Wound culture final Staph simulans 1+ Corynebacterium jeikeium 1+ Streptococcus parasanguinis 1+ Strep anginosus Anaerobic culture Prevotella bivia Beta Lactamase positive Bacteroides sp Beta Lactamase positive. Menses: cycles every 28 and 5 days of flow. Last several months menses every 23-31 days lasting up to 10 days which including spotting before and after 5 days of menstrual flow Contraception: none HPV vaccine: No Last Pap: 04/2022 - could not read and supposed to go for repeat but did not HPV: unknown History of abnormal pap: No - has only had a few Last mammogram: never Sexually active: No History of STDS: None History of fibroids: Yes - on MRI see below History of ovarian cyst: Yes Hot flashes: No Night sweats: No MRI 09/08/2021 (ordered by [facility] to check for fistulas) IMPRESSION: No active small bowel inflammation. ?No evidence of fistula. Several uterine fibroids including 2.2 cm probable submucosal/intracavit arun fibroid. ?C-shaped, tubular structure in left adnexa, likely hematosalpinx. ?Subcentimeter hemorrhagic focus in each ovary, likely hemorrhagic cysts. 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 History LMP: 12/19/2021 (Exact Date), Having periods Age at Menarche: Age at First : Age at Menopause: Telephone [employer] History Comments: Sexual Activity: Not Currently; No partner data on record Contraception: None PAST MEDICAL HISTORY Diagnosis Date - Acute gastritis without mention of hemorrhage - Essential hypertension, benign - Nausea alone - Paroxysmal tachycardia, unspecified (HCC) - Regional enteritis of small intestine with large intestine (HCC) Crohn's disease, s/p colectomy 1990 PAST SURGICAL HISTORY Procedure Laterality Date - EGD TRANSORAL BIOPSY SINGLE/MULTIPLE 01/02/10 - ILEOSTOMY/JEJUNOSTOMY ,NONTUBE 02/10/2002 loop ileostomy - PRCTECT COMPL W/STOT/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 No bloating, early satiety, indigestion, or increased flatulence. Bladder: No dysuria, gross hematuria, urinary frequency, urinary urgency, or incontinence. Breast: No breast lumps, nipple d/c, overlying skin changes, redness or skin retraction. Allergies and current medication updated:Yes EXAM: BP 98/68 Ht 5' 3.5 (1.61m) Wt 118 lb 9.6 oz (53.8kg) LMP 12/19/2021 BMI 20.68 kg/(m2). GENERAL: pleasant, female in no apparent distress HEENT: Normocephalic, atraumatic, mucus membranes moist and no lesions NECK: Supple, full range of motion, no adenopathy and thyroid normal DERMATOLOGY: Normal, without lesions, non-icteric and non-hirsute BREAST: soft, non-tender, symmetric, no dominant mass, normal nipple-areolar complex, no lymphadenopathy and no nipple discharge CHEST: Normal inspiratory effort ABDOMEN: soft, non-tender, no masses and ileostomy bag to right abdomen PELVIC: external genitalia normal, normal Bartholin's glands, urethra, Verplanck's glands, no vulvar lesions, good vaginal support, normal appearing perineal body and perianal region. Unable to locate cervix due to pt discom (more content not included)... Normal [facility] MRI ABDOMEN WO/W IVCONon MRI ABDOMEN WO/W IVCON * * *Final Report * * * DATE OF EXAM: Sep 07 2021 9:09PM QBM [id number] - MRI ABDOMEN WO/W IVCON / PROCEDURE REASON: multiple diagnoses * * * * Physician Interpretation * * * * MRI ABDOMEN WITHOUT AND WITH IV CONTRAST, MRI PELVIS WITHOUT AND WITH IV CONTRAST (MR ENTEROGRAPHY) CLINICAL HISTORY: 46 year old year old female?with PMH of Crohn's disease s/p multiple surgeries with has had End Ileostomy since 2003, been well from the crohn's standpoint. She is seen in clinic today due to concern of chronic vaginal discharge and concern regarding the fistula.? TECHNIQUE: Magnet: 3.0T scanner. Multiplanar MRI of the abdomen and MRI of pelvis with multiple sequences, performed before and after contrast. Technique was optimized for small bowel visualization/enterog shawna. Contrast: Intravenous: 10 ml of Dotarem Oral: 1000 ml of Breeza COMPARISON: None. RESULT: GI Tract: Proctocolectomy with right lower quadrant end ileostomy. Small bowel: No mural hyperenhancement, edema, or wall thickening. Colon: Colectomy Strictures: None Fistulae/Sinus tracts: None Abscess: None Abdomen and Pelvis: Liver: Normal morphology. Subcentimeter segment VII cyst. Biliary: No bile duct dilation. Gallbladder is normal. Spleen: No mass. No splenomegaly. Pancreas: No mass or duct dilation. Adrenals: No mass. Kidneys: 1.7 cm left upper pole renal cyst and additional subcentimeter cysts. No hydronephrosis. Lymph nodes: No abdominal or pelvic lymphadenopathy. Mesentery / Peritoneum / Retroperitoneum: No ascites or mass. Benign-appearing cystic structure in retroaortic region, likely lymphatic origin. Vasculature: The celiac axis and SMA are patent. The portal vein and branches, splenic vein, SMV, and hepatic veins are patent. No aortic or iliac artery aneurysm. Pelvis: 1.8 cm intramural fibroid in the left lateral uterine body, 1.2 cm intramural fibroid in the posterior body and subcentimeter fibroid in the right posterolateral uterine body. There is a well-circumscribed 2.2 cm T2 hypointense mass in the endometrial canal, likely submucosal/intracavit arun fibroid. There is a C shaped T1 hyperintense structure in the left adnexa, likely a hematosalpinx. There are bilateral ovarian follicles. Subcentimeter T1 hyperintense focus in each ovary, likely hemorrhagic cysts. Bones/Soft Tissues: Subchondral cystic change in both acetabula. Lower chest: Unremarkable. IMPRESSION: No active small bowel inflammation. No evidence of fistula. Several uterine fibroids including 2.2 cm probable submucosal/intracavit arun fibroid. C-shaped, tubular structure in left adnexa, likely hematosalpinx. Subcentimeter hemorrhagic focus in each ovary, likely hemorrhagic cysts. Jack Frame Tender: PSCAlondra Transcribe Date/Time: Sep 08 2021 11:17A Dictated by : BECKA GALVEZ MD This examination was interpreted and the report reviewed and electronically signed by: BECKA GALVEZ MD on Sep 08 2021 11:49AM EST [id number] Normal [facility] MRI PELVIS WO/W IVCONon 08-28 MRI PELVIS WO/W IVCON * * *Final Report* * * DATE OF EXAM: Sep 07 2021 9:09PM QBM [id number] - MRI PELVIS WO/W IVCON / PROCEDURE REASON: multiple diagnoses * * * * Physician Interpretation * * * * MRI ABDOMEN WITHOUT AND WITH IV CONTRAST, MRI PELVIS WITHOUT AND WITH IV CONTRAST (MR ENTEROGRAPHY) CLINICAL HISTORY: 46 year old year old female?with PMH of Crohn's disease s/p multiple surgeries with has had End Ileostomy since 2002, been well from the crohn's standpoint. She is seen in clinic today due to concern of chronic vaginal discharge and concern regarding the fistula.? TECHNIQUE: Magnet: 3.0T scanner. Multiplanar MRI of the abdomen and MRI of pelvis with multiple sequences, performed before and after contrast. Technique was optimized for small bowel visualization/enterog shawna. Contrast: Intravenous: 10 ml of Dotarem Oral: 1000 ml of Breeza COMPARISON: None. RESULT: GI Tract: Proctocolectomy with right lower quadrant end ileostomy. Small bowel: No mural hyperenhancement, edema, or wall thickening. Colon: Colectomy Strictures: None Fistulae/Sinus tracts: None Abscess: None Abdomen and Pelvis: Liver: Normal morphology. Subcentimeter segment VII cyst. Biliary: No bile duct dilation. Gallbladder is normal. Spleen: No mass. No splenomegaly. Pancreas: No mass or duct dilation. Adrenals: No mass. Kidneys: 1.7 cm left upper pole renal cyst and additional subcentimeter cysts. No hydronephrosis. Lymph nodes: No abdominal or pelvic lymphadenopathy. Mesentery / Peritoneum / Retroperitoneum: No ascites or mass. Benign-appearing cystic structure in retroaortic region, likely lymphatic origin. Vasculature: The celiac axis and SMA are patent. The portal vein and branches, splenic vein, SMV, and hepatic veins are patent. No aortic or iliac artery aneurysm. Pelvis: 1.8 cm intramural fibroid in the left lateral uterine body, 1.2 cm intramural fibroid in the posterior body and subcentimeter fibroid in the right posterolateral uterine body. There is a well-circumscribed 2.2 cm T2 hypointense mass in the endometrial canal, likely submucosal/intracavit arun fibroid. There is a C shaped T1 hyperintense structure in the left adnexa, likely a hematosalpinx. There are bilateral ovarian follicles. Subcentimeter T1 hyperintense focus in each ovary, likely hemorrhagic cysts. Bones/Soft Tissues: Subchondral cystic change in both acetabula. Lower chest: Unremarkable. IMPRESSION: No active small bowel inflammation. No evidence of fistula. Several uterine fibroids including 2.2 cm probable submucosal/intracavit arun fibroid. C-shaped, tubular structure in left adnexa, likely hematosalpinx. Subcentimeter hemorrhagic focus in each ovary, likely hemorrhagic cysts. Jack Frame Tender: CATHY Transcribe Date/Time: Sep 08 2021 11:17A Dictated by : BECKA GALVEZ MD This examination was interpreted and the report reviewed and electronically signed by: BECKA GALVEZ MD on Sep 08 2021 11:49AM EST [id number] N Normal [facility] No Panel Informationon 09-07 [facility] ([id number]) 1975 F Date Time Provider Department 08/23/21 ISIS AGUIRRE During your visit today, we recorded the following information about you: Isis Aguirre MD 09/07/2021 12:48 PM Addendum P2P for MR pelvis was also completed in a later phone call Auth No: [id number] --------- Authorization completed for MR Abdomen. Authorization number: [id number] Awaiting call back for P2P for Pelvis. Allergies As of Date: 08/23/2021 Noted Allergy Reaction CORN 12/12/2009 9 - Itching PEANUTS 12/12/2009 9 - Itching PERCOCET (OXYCODONE-ACETAMINOP HEN)12/20/2009 Date Reviewed: 08/09/2021 Reviewed by: Carmela Morgan LPN - Fully Assessed Reason for Visit: Patient Update [1234] Prescriptions as of 09/07/2021 - TRIAMCINOLONE ACETONIDE 0.1 % OINTMENT apply q daily for two weeks then twice per week - ATENOLOL 50 MG TAB Take one(1) tablet daily. Problem List As Of Date 08/23/2021 Noted Resolved PALPITATIONS [R00.2] REG ENTERIT SM/LG INTEST [K50.80] BENIGN HYPERTENSION [I10] PAROX TACHYCARDIA NOS [I47.9] ADRENAL DISORDER NOS [E27.9] 12/14/2001 Nausea Alone [R11.0] 01/02/2010 Acute Gastritis without Mention of Hemorrhage [*01/02/2010 Encounter Status:Closed by ISIS AGUIRRE on 08/23/21 Normal [facility] Calprotectin, Fecalon 2021 Calprotectin Comment INTERPRETIVE INFORMATION: Normal [facility] Comment on above: Result Comment: INTE RPRETIVE INFORMATION: Calprotectin, Fecal <50.0 mg/kg : Normal 50.0-120.0 mg/kg: Borderline. Test should be re-evaluated in 4-6 weeks. >120.0 mg/kg : Abnormal Performed By: #### C ALPRO ####[facility], [place] [phone] Calprotectin Interp Normal Normal [facility] Comment on above: Performed By: #### C ALPRO ####[facility], [place] [phone] Calprotectin, Fecal <27.1 Normal <50.0 [facility] Comment on above: Performed By: #### C ALPRO ####[facility] [phone] Comp Metabolic Panelon 08-09 Albumin [Mass/Vol] 4.4 g/dL Normal 3.9-4.9 [facility] Comment on above: Performed By: #### I DALY, CMP, VITD, B12 ####[place] [address] [place] [phone] ALP [Catalytic activity/Vol] 68 U/L Normal 34-123 [facility] Comment on above: Performed By: #### I DALY, CMP, VITD, B12 ####[place] [address] [phone] ALT [Catalytic activity/Vol] 31 U/L Normal 7-38 [facility] Comment on above: Performed By: #### I DALY, CMP, VITD, B12 ####[place] [address] [place] [phone] Anion gap [Moles/Vol] 10 mmol/L Normal 9-18 [facility] Comment on above: Performed By: #### I DALY, CMP, VITD, B12 ####[place] [address] [place] [phone] AST [Catalytic activity/Vol] 26 U/L Normal 13-35 [facility] Comment on above: Performed By: #### I DALY, CMP, VITD, B12 ####[place] [address] [place] [phone] Bilirubin [Mass/Vol] 0.4 mg/dL Normal 0.2-1.3 [facility] Comment on above: Performed By: #### I DALY, CMP, VITD, B12 ####[place] [address] [place] [phone] Calcium [Mass/Vol] 9.8 mg/dL Normal 8.5-10.2 [facility] Comment on above: Performed By: #### I DALY, CMP, VITD, B12 ####[facility] [phone] Chloride [Moles/Vol] 105 mmol/L Normal 97-105 [facility] Comment on above: Performed By: #### I DALY, CMP, VITD, B12 ####[place] [address] [phone] CO2 [Moles/Vol] 23 mmol/L Normal 22-30 [facility] Comment on above: Performed By: #### I DALY, CMP, VITD, B12 ####[place] [address] [place] [phone] Creatinine [Mass/Vol] 1.06 mg/dL High 0.58-0.96 [facility] Comment on above: Performed By: #### I DALY, CMP, VITD, B12 ####[place] [address] [phone] eGFR- Amer. >60 Normal [facility] Comment on above: Performed By: #### I DALY, CMP, VITD, B12 ####[place] [address] [place] [phone] eGFR-All Other Races 56 . Normal [facility] Comment on above: Result Comment: eGFR (Estimated GFR) Units of measure: mL/min/1.73 meters squared eGFR is derived from the reexpressed MDRD Study equation using the following parameters: serum creatinine, age, gender and race. The creatinine assay has been calibrated to be traceable to IDMS. An eGFR <60 mL/min/1.73m2 for >3 months is consistent with chronic kidney disease. Refer to KDOQI guidelines for clinical interpretation. In patients with unstable renal function, e.g. those with acute kidney injury, the eGFR may not accurately reflect actual GFR. Note: On 08/25/2021, the eGFR calculation will be updated to the NKF-ASN Task Force recommended 2020 CKD-EPI creatinine equation which does not include a race variable. For more information or to access a 2020 CKD-EPI calculator, visit the National Kidney Foundation website at kidney.org/professionals/kdoqi/gfr_calculator. Performed By: #### I DALY, CMP, VITD, B12 ####[facility] [place], [place] [phone] Glucose [Mass/Vol] 86 mg/dL Normal 74-99 [facility] Comment on above: Result Comment: The [place] Diabetes Association (ADA) provides guidance for cutoff values for fasting glucose and random glucose. The ADA defines fasting as no caloric intake for at least 8 hours. Fasting plasma glucose results between 100 to 125 mg/dL indicate increased risk for diabetes (prediabetes). Fasting plasma glucose results greater than or equal to 126 mg/dL meet the criteria for diagnosis of diabetes. In the absence of unequivocal hyperglycemia, results should be confirmed by repeat testing. In a patient with classic symptoms of hyperglycemia or hyperglycemic crisis, random plasma glucose results greater than or equal to 200 mg/dL meet the criteria for diagnosis of diabetes. Reference: Standards of Medical Care in Diabetes 2016, [place] [employer]. Diabetes Care. 2016.39(Suppl 1). Performed By: #### I DALY, CMP, VITD, B12 ####[facility] [place], [place] [phone] Potassium [Moles/Vol] 3.8 mmol/L Normal 3.7-5.1 [facility] Comment on above: Performed By: #### I DALY, CMP, VITD, B12 ####[facility], [place] [phone] Protein [Mass/Vol] 7.6 g/dL Normal 6.3-8.0 [facility] Comment on above: Performed By: #### I DALY, CMP, VITD, B12 ####[facility] [place], [place] [phone] Sodium [Moles/Vol] 138 mmol/L Normal 136-144 [facility] Comment on above: Performed By: #### I DALY, CMP, VITD, B12 ####[place] [address], [place] [phone] Urea nitrogen [Mass/Vol] 32 mg/dL High 7-21 [facility] Comment on above: Performed By: #### I DALY, CMP, VITD, B12 ####[place] [address] [place] [phone] Iron and TIBCon 08-09-2021 Iron [Mass/Vol] 49 ug/dL Normal 41-186 [facility] Comment on above: Performed By: #### I DALY, CMP, VITD, B12 ####[place] [address] [phone] TIBC 467 ug/dL High 232-386 [facility] Comment on above: Performed By: #### I DALY, CMP, VITD, B12 ####[place] [address] [place] [phone] Transferrin Saturatn 10 % Low 15-57 [facility] Comment on above: Performed By: #### I DALY, CMP, VITD, B12 ####[place] [address] [place] [phone] Vitamin B12on 08-09-2021 Cobalamin (Vitamin B12) [Mass/Vol] 561 pg/mL Normal 232-1245 [facility] Comment on above: Performed By: #### I DALY, CMP, VITD, B12 ####[place] [address] [phone] Vitamin D 25 Hydroxyon 08-09 Vitamin D 25 Hydroxy 11.9 ng/mL Low 31.0-80.0 [facility] Comment on above: Result Comment: Clas sification of 25 [place] Vitamin D status: Insufficiency/Moderate Deficiency: < or = 30 ng/mL Sufficiency/Optimal Levels: 31 to 80 ng/mL Toxicity: > 100 ng/mL Test performed by chemiluminescent immunoassay. Performed By: #### I DALY, CMP, VITD, B12 ####[facility] [address] [place], [place] [phone] Vital Signs Date Time Vital Sign Value Performing Clinician Miley hammonds 04-01-2022 12:56-0400 Body height 161.3 cm Adrianne Griffith MD Work Phone: [facility] 04-01-2022 12:56-0400 Body weight 55.34 kg Adrianne Griffith MD Work Phone: [facility] 04-01-2022 12:56-0400 Diastolic blood pressure 82 mm[Hg] Adrianne Griffith MD Work Phone: [facility] 04-01-2022 12:56-0400 Systolic blood pressure 140 mm[Hg] Adrianne Griffith MD Work Phone: [facility] 01-11-2022 14:01-0400 Body height 161.3 cm Kaelyn Stein APRN.BLOOD BANK ATTENDANT Work Phone: [facility] 01-11-2022 14:01-0400 Body weight 53.8 kg Kaelyn Stein APRN.BLOOD BANK ATTENDANT Work Phone: [facility] 01-11-2022 14:01-0400 Diastolic blood pressure 68 mm[Hg] Kaelyn Stein APRN.BLOOD BANK ATTENDANT Work Phone: [facility] 01-11-2022 14:01-0400 Systolic blood pressure 98 mm[Hg] Kaelyn Stein APRN.BLOOD BANK ATTENDANT Work Phone: [facility] Encounters Encounter Date Encounter Type Care Provider Facility Start: 12-27-2024 End: 12-27-[address] Lisseth Queen DO Work Phone: -Laboratory Start: 12-27-2024 End: 12-27-2024 Patient encounter procedure Ann Gutiérrez [employer] -Laboratory Work Phone: Start: 12-27-2024 End: 12-27-2024 ambulatory Lisseth Queen Facility:[facility] Start: 06-26-2024 End: 06-26-2024 [facility] Start: 10-08-2023 End: 10-08-2023 ambulatory [facility] Work Phone: Start: 10-08-2023 End: 10-08-2023 Patient encounter procedure [facility]-Laboratory Work Phone: Start: 09-28-2022 Letter encounter Jose Angel smithakris Start: 06-30-2022 Letter encounter Jose Angel suggskris Start: 04-01-2022 End: 04-01-2022 Patient encounter procedure Adrianne Griffith MD Work Phone: [employer] [facility] Comment on above: Pelvic pain in femal e (Primary Dx); Uterine leiomyoma, unspecified location; Dysmenorrhea; Menorrhagia with regular cycle; Other iron deficiency anemia Start: 04-01-2022 End: 04-01-2022 Nursing evaluation of patient and report 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 [facility] Work Phone: [employer] Comment on above: Irregular menstrual cycle; Pelvic pain in female; Dysmenorrhea Start: 03-31-2022 Letter encounter Jose Angel suggskris Start: 02-15-2022 Telephone encounter Adrianne Griffith MD Work Phone: [employer] Comment on above: Results Start: 01-23-2022 Telephone encounter Kaelyn bach APRN.CNP Work Phone: OB/Gynecology Comment on above: Results Start: 01-16-2022 Telephone encounter Kaelyn bach APRN.CNP Work Phone: OB/Gynecology Comment on above: Results Start: 01-11-2022 End: 01-11-2022 Patient encounter procedure Kaelyn Stein APRN.CNP Work Phone: OB/Gynecology Comment on above: Encounter for gyneco logical examination with abnormal finding (Primary Dx); Vaginal discharge; Vaginal odor; Ovarian cyst, bilateral; Uterine leiomyoma, unspecified location; Encounter for screening mammogram for breast cancer Start: 01-11-2022 End: 07-15-2022 Patient encounter status Kaelyn Stein APRN.BLOOD BANK ATTENDANT Work Phone: OB/Gynecology Start: 08-27-2021 End: 08-27-2021 Subsequent hospital visit by physician Mri Radio [facility] (I-Stat/1.5t) Work Phone: Radiology Comment on above: 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 Lisseth Queen DO Work Phone: Comment on above: Vitamin D StatusDefi ciency: <20 ng/mL (50nmol/L)Insufficiency: 20-30 ng/mL (50-75 nmol/L)Sufficiency: 30-100 ng/mL (75-250 nmol/L)Toxicity: >100 ng/mL (>250 nmol/L) Start: 02-13-2022 Adult depression scr eening assessment Adrianne Griffith MD Work Phone: Start: 09-07-2021 Mri abdomen w/o & w/contrast material Isis Aguirre MD Work Phone: Start: 02-23-2003 Colonoscopy Mri (I-Sta t/1.5t) Work Phone: Plan of Treatment Date Care Activity Detail Author Start: 02-13-2027 HPV TESTING HPV TESTING [facility] Start: 02-13-2027 PAP TESTING PAP TESTING [facility] Start: 02-13-2025 DIABETES SCREEN DIABETES SCREEN [facility] Start: 08-09-2024 DIABETES SCREEN DIABETES SCREEN [facility] Start: 2024 Shingles (RZV) Vacci ne (1 of 2) Shingles (RZV) Vaccine (1 of 2) [facility] Start: 02-29-2024 COVID-19 Vaccine ( season) COVID-19 Vaccine ( season) [facility] Start: 02-29-2024 Influenza vaccination Influenza Vacc ine (#1) [facility] Start: 02-13-2023 Adult depression screening assessment DEPRESSION SCREENING [facility] Start: 02-13-2023 BP CONTROLLED (<130/80) BP CONTROLLE D (<130/80) [facility] Start: 01-11-2023 BP CONTROLLED (<130/80) BP CONTROLLE D (<130/80) [facility] Start: 08-09-2022 BP CONTROLLED (<130/80) BP CONTROLLE D (<130/80) [facility] Start: 03-30-2022 Influenza vaccination Influenza Vacc ine (#1) [facility] Start: 02-28-2022 Influenza vaccination C [facility] Start: 06-30-2021 DEPRESSION ASSESSMENT DEPRESSION ASS ESSMENT [facility] Start: 2019 Cholesterol [Mass/volume] in Serum or Plasma Cholesterol [facility] Start: 2019 COLOGUARD (FIT-DNA) COLOGUARD (FIT-D NA) [facility] Start: 2019 Colonoscopy COLONOSCOPY [facility] Start: 2019 COLORECTAL CANCER SCREENING COLORECTAL CANCER SCREENING [facility] Start: [address] COLONOGRAPHY [facility] Start: 2019 FECAL OCCULT BLOOD FECAL OCCULT BLOO D [facility] Start: 2019 Lipid panel Cholesterol [facility] Start: 2019 LIPID SCREEN LIPID SCREEN [facility] Start: 2019 Screening for malign ant [facility]oplasm [facility] Start: 2019 SIGMOIDOSCOPY SIGMOIDOSCOPY [facility] Start: 08-29-2016 Tetanus vaccination Tetanus (T d or Tdap) Booster [facility] Start: 2014 Mammography MAMMOGRAM [facility] Start: 2014 Screening for malign ant neoplasm of breast [facility] Start: 09-26-2006 HEPATITIS B (2 of 3 - Risk 3-dose series) HEPATITIS B (2 of 3 - Risk 3-dose series) [facility] Start: 09-26-2006 Hepatitis B vaccination Hepati tis B (HBV) Vaccine (2 of 3 - 19+ 3-dose series) [facility] Start: 08-30-2006 Urine microalbumin profile DTAP,TDAP,TD (6 - Tdap) [facility] Start: 2004 HPV TESTING HPV TESTING [facility] Start: 1995 PAP TESTING PAP TESTING [facility] Start: 1995 Screening for malign ant neoplasm of cervix Pap Smear [facility] Start: 1993 Hepatitis A (HAV) Vaccine (optional start 19+ years) Hepatitis A (HAV) Vaccine (optional start 19+ years) [facility] Start: 1993 HEPATITIS B (1 of 3 - Risk 3-dose series) HEPATITIS B (1 of 3 - Risk 3-dose series) [facility] Start: 1993 Urine microalbumin profile DTAP,TDAP,TD (1 - Tdap) [facility] Start: 1992 ANNUAL PCP TEAM WEDDING DAY COORDINATOR TIA DISEASE VISIT ANNUAL PCP TEAM CHRONIC DISEASE VISIT [facility] Start: 1992 BP CONTROLLED (<130/80) BP CONTROLLE D (<130/80) [facility] Start: 1992 HEPATITIS C SCREENING HEPATITIS C SC REENING [facility] Start: 1992 Hepatitis C screening Hepatitis C An tibody [facility] Start: 1992 HIV SCREENING HIV SCREENING [facility] Start: 1992 MMR (1 of 2 - Risk 2-dose series) MMR (1 of 2 - Risk 2-dose series) [facility] Start: 1992 Tetanus + diphtheria + acellular pertussis vaccine (product) Tdap Booster [facility] Start: 1989 HIV screening HIV Test [facility] Start: 1986 Adult depression screening assessment DEPRESSION SCREENING [facility] Start: 1984 MENINGOCOCCAL B: Consider based on risk (1 of 4 - Increased Risk Bexsero 2-dose series) MENINGOCOCCAL B: Consider based on risk (1 of 4 - Increased Risk Bexsero 2-dose series) [facility] Start: 1979 COVID-19 VACCINE (#1) COVID-19 VACCI NE (#1) [facility] Start: 1975 HEPATITIS A (1 of 2 - Risk 2-dose series) HEPATITIS A (1 of 2 - Risk 2-dose series) [facility] Start: 1974 COVID-19 VACCINE (#1) COVID-19 VACCI NE (#1) [facility] Start: 1974 Screening for malign ant neoplasm of colon Colonoscopy [facility] Bacteria identified in Unspecified specimen by Anaerobe culture ANAEROBE CULTURE Microbiology Routine Vaginal discharge Vaginal odor 01/11/2022 3:[address] [facility] Work Phone: Bacteria identified in Wound by Culture WOUND CULTURE AND GRAM STAIN Microbiology Routine Vaginal discharge Vaginal odor 01/11/2022 3:[address] [facility] Work Phone: End: 02-10-2023 Screening mammography bi 2-view breast inc cad CARLIE SCREENING Radiology Routine Encounter for screening mammogram for breast cancer 1 Occurrences starting 01/11/2022 until 02/10/2023 [facility] Work Phone: Comment on above: 1 Occurrences starti ng 01/11/2022 until 02/10/2023 Us pelvic nonobstetr ic real-time image complete US FEMALE PELVIS TRANSABD COMPLETE Radiology Routine Irregular menstrual cycle Pelvic pain in female Dysmenorrhea 04/01/2022 1:16 PM EDT [facility] Work Phone: [facility] Immunizations Immunization Date Immunization Notes Care Provider Fa cility 08-05-2022 influenza, injectabl e, quadrivalent, preservative free [facility] 08-05-2022 tetanus toxoid, reduced diphtheria toxoid, and acellular pertussis vaccine, adsorbed [facility] 08-29-2006 hepatitis B vaccine, adult dosage Adrianne Griffith MD Work Phone: [facility] 08-29-2006 TD(adult) unspecifie d formulation Adrianne Griffith MD Work Phone: [facility] 08-29-2006 hepatitis B vaccine, unspecified formulation Adrianne Griffith MD Work Phone: [facility] 08-27-2006 tuberculin skin test ; purified protein derivative solution, intradermal [facility] Work Phone: 03-30-2002 influenza virus vaccine, unspecified formulation Mri (I-Stat/1.5t) Work Phone: [facility] Work Phone: 12-18-1995 tetanus and diphther ia toxoids, adsorbed, preservative free, for adult use (5 Lf of tetanus toxoid and 2 Lf of diphtheria toxoid) Adrianne Griffith MD Work Phone: [facility] 01-28-1995 hepatitis B vaccine, pediatric or pediatric/adolescent dosage Adrianne Griffith MD Work Phone: [facility] 07-10-1989 measles, mumps and rubella virus vaccine Adrianne Griffith MD Work Phone: [facility] 12-10-1988 tetanus and diphther ia toxoids, adsorbed, preservative free, for adult use (5 Lf of tetanus toxoid and 2 Lf of diphtheria toxoid) Adrianne Griffith MD Work Phone: [facility] 12-30-1978 haemophilus influenz ae type b vaccine, conjugate unspecified formulation Adrianne Griffith MD Work Phone: [facility] 12-30-1978 poliovirus vaccine, inactivated Adrianne Griffith MD Work Phone: [facility] 08-07-1976 diphtheria, tetanus toxoids and acellular pertussis vaccine Adrianne Griffith MD Work Phone: [facility] 08-07-1976 poliovirus vaccine, inactivated Adrianne Griffith MD Work Phone: [facility] 11-22-1975 measles, mumps and rubella virus vaccine Adrianne Griffith MD Work Phone: [facility] 1975 diphtheria, tetanus toxoids and acellular pertussis vaccine Adrianne Griffith MD Work Phone: [facility] 1975 poliovirus vaccine, inactivated Adrianne Griffith MD Work Phone: [facility] 1974 diphtheria, tetanus toxoids and acellular pertussis vaccine Adrianne Griffith MD Work Phone: [facility] 1975 trivalent poliovirus vaccine, live, oral Adrianne Griffith MD Work Phone: [facility] 1975 diphtheria, tetanus toxoids and acellular pertussis vaccine Adrianne Griffith MD Work Phone: [facility] 1975 trivalent poliovirus vaccine, live, oral Adrianne Griffith MD Work Phone: [facility] Payers Date Payer Category Payer Self-pay [id number] Unknown [id number] 2021 Unknown MMO MMO [employer] [id number] 2021-Present [phone] [address] [place] [address] PPO [id number] 2021 Unknown MMO MMO [employer] [id number] 2021-Present [phone] [address] [place] [address] PPO [id number] 2021 Medicaid [facility] MEDICAID [facility] MEDICAID [id number] 2021-Present [phone] [address] [place] [address] Medicaid [id number] Unknown MAGGIE [id number] Unknown [id number] Unknown [id number] Social History Date Type Detail Facility Start: 02-13-2022 Tobacco smoking status NHIS Never smoked tobacco [facility] Start: 12-23-2006 End: 08-09-2021 Alcohol intake Current drinker of alcohol (finding) [facility] Start: 08-09-2021 History SDOH Alcohol Comment rarely [facility] Start: 1975 Sex Assigned At Female C [facility] Start: 07-25-2021 End: 04-01-2022 Exposure to SARS-CoV-2 (event) Not sure [facility] Start: 02-13-2022 Tobacco use and exposure Smokeless tobacco non-user [facility] Start: 01-20-2006 History SDOH Alcohol Comment quit [facility] Start: 1975 Sex Assigned At Not on file [facility] Start: 05-03-2012 Sex Female (finding) Kris coles Gender identity Not on file [facility] Tobacco smoking status NHIS Unknown if ever smoked [facility] Work Phone: Clinical Notes 08-09-2021 to 04-01-2022 Melida Patton - 04/01/2022 1:16 PM EDTSusan Gabby Griffith MD - 04/01/2022 12:55 PM EDTTelephone Encounter - Kaelyn Rebolledo - 02/15/2022 10:13 AM EDTPatient Instructions Note Date & Type Note Facility 04-01-2022 History of Present illness Narrative 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 Melida Patton RDMS documented in this encounter [facility] 04-01-2022 History of Present illness Narrative SUBJECTIVE: Evan Doran is a 47 year old female who is here to follow up on pelvic ultrasound results. Uterus enlarged; fibroids mid 2.3 cm, ant 2.7 cm, endometrium thickened. R ovarian cyst 2.7 cm, L 4. 0 and 2.6 cm cysts. No free fluid. ; lmp 03/13/22. Her menses in December lasted 2 1/2 wks; she was also taking a mulitvitamin. Reviewed US and options/ ovarian suppression/myfembree/ lysteda. Info given. Pt undecided. If no treatment, suggest repeat US in 3-4 months. 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) Crohn's disease, s/p colectomy 1990 PAST SURGICAL HISTORY Procedure Laterality Date EGD TRANSORAL BIOPSY SINGLE/MULTIPLE 01/02/10 ILEOSTOMY/JEJUNOSTOMY,NONTUBE 02/10/2002 loop ileostomy PRCTECT COMPL W/STOT/TOT COLCT W/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 azithromycin (ZITHROMAX) 500 mg tablet 1 gram single dose or 2 500 mg tablets (Patient not taking: Reported on 04/01/2022) atenolol (TENORMIN) 50 mg tablet Take by mouth. (Patient not taking: No sig reported) No current facility-administered medications for this visit. ALLERGIES Allergen Reactions Porcupine Itching Peanut Itching Peanuts Itching Percocet [Oxycodone* OBJECTIVE BP 140/82 Ht 5' 3.5 (1.61m) Wt 122 lb (55.3kg) LMP 03/13/2022 BMI 21.27 kg/(m^2). ASSESSMENT/PLAN: 1. Pelvic pain in female - ICD9: 625.9, ICD10: R10.2 (primary diagnosis) 2. Uterine leiomyoma, unspecified location - ICD9: 218.9, ICD10: D25.9 3. Dysmenorrhea - ICD9: 625.3, ICD10: N94.6 4. Menorrhagia with regular cycle - ICD9: 626.2, ICD10: N92.0 - TRANEXAMIC ACID 650 MG TABLET 5. Other iron deficiency anemia - ICD9: 280.8, ICD10: D50.8 - TRANEXAMIC ACID 650 MG TABLET MD Kaelyn Carrera No follow-ups on file. documented in this encounter [facility] 02-15-2022 Miscellaneous Notes Patient returned call and was notified of message below regarding LAB results per provider. Patient acknowledged understanding of instructions and has no further questions. Kaelyn Rebolledo Left message to return call to office. Kaelyn Rebolledo ----- Message from Adrianne Griffith MD sent at 02/14/2022 4:21 PM EDT ----- Please call patient. Your thyroid profile is normal. Your CBC shows anemia and low ferritin or iron stores. Oral iron is suggested; if not well tolerated; could consider iron infusions. A prescription for oral iron will be sent to your pharmacy. Vit D is low; 5000 units/d vit D3 is suggested x 2 months, then recheck. When normal 2000 units/d vit D3 should maintain normal levels. CMP shows slightly elevated creatinine (a kidney function test). Liver, blood sugar, calcium and electrolytes are normal. Adrianne Griffith MD documented in this encounter [facility] 02-13-2022 Note HNO ID: [id number] Author: Adrianne Griffith MD Service: ? Author Type: Physician Type: Progress Notes Filed: 02/13/2022 11:21 AM Note Text: SUBJECTIVE Evan Doran is a 46 year old woman who presents for her annual exam: Last pap years, Mammo never, Bone Density never, Patient's last menstrual period was 01/16/2022 (exact date).. x 3 weeks Periods q 4 wks lasting 10 d. She takes tylenol. Was seeing Dr.Guthrie stewart in epic Complains of irregular discharge. Patient complains of painful exams and painful intercourse. Pain is vaginal with intercourse. Uses nothing for prevention. Her bowels are doing ok since 2002. Medications, Allergies, Surgeries, Family History updated and smoking status updated. Discussed health maintenance, including regular aerobic exercise, low fat diet, and periodic exams. 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) Crohn's disease, s/p colectomy 1990 PAST SURGICAL HISTORY Procedure Laterality Date EGD TRANSORAL BIOPSY SINGLE/MULTIPLE 01/02/10 ILEOSTOMY/JEJUNOSTOMY,NONTUBE 02/10/2002 loop ileostomy PRCTECT COMPL W/STOT/TOT COLCT W/GARMENT 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 Multivitamin capsule Take 1 capsule by mouth once daily. No current facility-administered medications for this visit. 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 HEENT: Within normal limits NECK: Supple, no thyromegaly BREASTS: No masses, no nipple discharge HEART: Regular rate and rhythm without murmur, rub, or gallop LUNGS: Clear bilaterally to auscultation ABDOMEN: No masses, non tender, no hernias, no hepatosplenomegaly PELVIC: EGBUS: post fourchette pale, white raised area 3 mm to L side; midline appears very thin and could split easily; topical premarin cream with recheck 3 months VAGINA: +discharge, Vikor sample taken, copious amount of blood tinged discharge (4 briseno swabs worth) CERVIX: blind pap done d/t d/c and pedi spec UTERUS: Anteverted, normal size, non tender ADNEXA: Non tender, no masses RECTOVAGINAL: Not examined; has ileostomy EXTREMITIES: No edema, no calf tenderness NEUROLOGICAL: Grossly intact ASSESSMENT/PLAN: 1. Gynecologic exam normal - ICD9: V72.31, ICD10: Z01.419 (primary diagnosis) - PAP REFLEX HPV MRNA WHEN ASCUS - CARLIE SCREENING - CARLIE SCREENING W ERIN 2. Cervical cancer screening - ICD9: V76.2, ICD10: Z12.4 - PAP REFLEX HPV MRNA WHEN ASCUS 3. Vaginal discharge - ICD9: 623.5, ICD10: N89.8 4. Irregular menstrual cycle - ICD9: 626.4, ICD10: N92.6 - HCG QUANTITATIVE - US FEMALE PELVIS TRANSABD 5. Other specified dyspareunia - ICD9: 625.0, ICD10: N94.19 - US FEMALE PELVIS TRANSABD 6. Pelvic pain in female - ICD9: 625.9, ICD10: R10.2 - US FEMALE PELVIS TRANSVAG 7. Dysmenorrhea - ICD9: 625.3, ICD10: N94.6 8. Encounter for Pap smear of cervix with HPV DNA cotesting - ICD9: V76.2, ICD10: Z12.4 - HUMAN PAPILLOMA VIRUS, MRNA 9. Malaise and fatigue - ICD9: 780.79, ICD10: R53.81, R53.83 - TSH BLD - THYROID PEROXIDASE ANTIBODY BLOOD - T3 FREE BLD - T4 FREE/FREE THYROX - CBC + DIFF - FERRITIN BLD - COMP METABOLIC PANEL 10. Breast cancer screening by mammogram - ICD9: V76.12, I (more content not included)... [facility] 01-23-2022 Miscellaneous Notes Message left on patient's phone -many different urogenital bacteria noted on culture. None that need treated today. Kaelyn Stein APRN.BLOOD BANK ATTENDANT documented in this encounter [facility] 01-16-2022 Miscellaneous Notes Patient notified Left message for patient to return phone call One culture is still pending. I will contact her when I know more and if she needs treated for anything now. I may need to reach out to Dr Pradhan to see if she wants any treatment so it may be next week before I call her back. Kaelyn Stein APRN.TONYA Patient viewed results from 01/11/22 appointment. Asking what these results mean. Delmi Jenkins RN documented in this encounter [facility] 01-11-2022 Note HNO ID: [id number] Author: Kaelyn Stein APRN.CNP Service: ? Author Type: Nurse Practitioner Type: Progress Notes Filed: 01/11/2022 4:35 PM Note Text: Evan is a 46 year old who presents for an annual gynecologic exam with complaints, wondering about beginning menopause and increased vaginal discharge. Discharge is rust colored and occurs a few days before and after menses. Odor is an old blood odor and does not smell healthy. Smells musty. Takes bubble bath, uses [employer], wears yoga pants. Uses feminine products due to strong odor to discharge. MRI 07/2021 - fistula ruled out as cause of discharge. Also has bloating and pain. Crohn's disease with loop ileostomy. Pt brings vaginal culture results from outside gyne office 04/2021 showed increased bacteria but not treated with antibiotic. Results scanned into EHR. Gram stain final No gram negative diplococci Rare gram-positive cocci 1+ gram-positive rods 2+ gram-negative rods No cells seen Wound culture final Staph simulans 1+ Corynebacterium jeikeium 1+ Streptococcus parasanguinis 1+ Strep anginosus Anaerobic culture Prevotella bivia Beta Lactamase positive Bacteroides sp Beta Lactamase positive. Menses: cycles every 28 and 5 days of flow. Last several months menses every 23-31 days lasting up to 10 days which including spotting before and after 5 days of menstrual flow Contraception: none HPV vaccine: No Last Pap: 04/2022 - could not read and supposed to go for repeat but did not HPV: unknown History of abnormal pap: No - has only had a few Last mammogram: never Sexually active: No History of STDS: None History of fibroids: Yes - on MRI see below History of ovarian cyst: Yes Hot flashes: No Night sweats: No MRI 09/08/2021 (ordered by GI [facility] to check for fistulas) IMPRESSION: No active small bowel inflammation. ?No evidence of fistula. Several uterine fibroids including 2.2 cm probable submucosal/intracavitary fibroid. ?C-shaped, tubular structure in left adnexa, likely hematosalpinx. ?Subcentimeter hemorrhagic focus in each ovary, likely hemorrhagic cysts. 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 History LMP: 12/19/2021 (Exact Date), Having periods Age at Menarche: Age at First : Age at Menopause: Telephone Station Installer History Comments: Sexual Activity: Not Currently; No partner data on record Contraception: None PAST MEDICAL HISTORY Diagnosis Date - Acute gastritis without mention of hemorrhage - Essential hypertension, benign - Nausea alone - Paroxysmal tachycardia, unspecified (HCC) - Regional enteritis of small intestine with large intestine (HCC) Crohn's disease, s/p colectomy 1990 PAST SURGICAL HISTORY Procedure Laterality Date - EGD TRANSORAL BIOPSY SINGLE/MULTIPLE 01/02/10 - ILEOSTOMY/JEJUNOSTOMY,NONTUBE 02/10/2002 loop ileostomy - PRCTECT COMPL W/STOT/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 No bloating, early satiety, indigestion, or increased flatulence. Bladder: No dysuria, gross hematuria, urinary frequency, urinary urgency, or incontinence. Breast: No breast lumps, nipple d/c, overlying skin changes, redness or skin retraction. Allergies and current medication updated:Yes EXAM: BP 98/68 Ht 5' 3.5 (1.61m) Wt 118 lb 9.6 oz (53.8kg) LMP 12/19/2021 BMI 20.68 kg/(m2). GENERAL: pleasant, female in no apparent distress HEENT: Normocephalic, atraumatic, mucus membranes moist and no lesions NECK: Supple, full range of motion, no adenopathy and thyroid normal DERMATOLOGY: Normal, without lesions, non-icteric and non-hirsute BREAST: soft, non-tender, symmetric, no dominant mass, normal nipple-areolar complex, no lymphadenopathy and no nipple discharge CHEST: Normal inspiratory effort ABDOMEN: soft, non-tender, no masses and ileostomy bag to right abdomen PELVIC: external genitalia normal, normal Bartholin's glands, urethra, Verplanck's glands, no vulvar lesions, good vaginal support, normal appearing perineal body and perianal region. Unable to locate cervix due to pt discomfort with XS speculum. Copious amount odorous thin pink renteria liquid filling entire vaginal vault - appears to fill vault from posterior vagina. BIMANUAL: uterus normal size, shape and consistency, no adnexal masses and non-tender NEURO: alert (more content not included)... [facility] 01-11-2022 Instructions Kaelyn Stein APRN.BLOOD BANK ATTENDANT - 01/11/2022 2:14 PM EDT Minimizing irritation of the vulva (area around the vagina) Wear white cotton underwear. Avoid synthetic fabrics and tight clothing. Sleep wearing shorts or pajama bottoms without underwear. Shower as soon as possible after exercise. Avoid clothing detergents and soaps with perfumes or dyes. Use warm (not hot) water to wash the vulva and if you use soap use a product designed for sensitive skin (like Dove or Cetaphil). Do not douche or use creams/powders in the vulvar area unless instructed by your physician. If you must douche, use only plain warm water. Make sure the vulva is dry before dressing by patting dry with a towel. Avoid vigorous rubbing with the towel. You may want to use the blow dryer (on the cool setting only!) on the vulva. The most important way to let your body heal is by avoiding scratching. Many patients find it difficult to avoid scratching at night when they are most aware of the itchiness. You can try taking Benadryl just before bedtime. Some women find it helpful to wear cotton gloves to bed to avoid scratching at night. documented in this encounter [facility] 01-11-2022 History of Present illness Narrative Evan is a 46 year old who presents for an annual gynecologic exam with complaints, wondering about beginning menopause and increased vaginal discharge. Discharge is rust colored and occurs a few days before and after menses. Odor is an old blood odor and does not smell healthy. Smells musty. Takes bubble bath, uses [employer], wears yoga pants. Uses feminine products due to strong odor to discharge. MRI 07/2021 - fistula ruled out as cause of discharge. Also has bloating and pain. Crohn's disease with loop ileostomy. Pt brings vaginal culture results from outside gyne office 04/2021 showed increased bacteria but not treated with antibiotic. Results scanned into EHR. Gram stain final No gram negative diplococci Rare gram-positive cocci 1+ gram-positive rods 2+ gram-negative rods No cells seen Wound culture final Staph simulans 1+ Corynebacterium jeikeium 1+ Streptococcus parasanguinis 1+ Strep anginosus Anaerobic culture Prevotella bivia Beta Lactamase positive Bacteroides sp Beta Lactamase positive. Menses: cycles every 28 and 5 days of flow. Last several months menses every 23-31 days lasting up to 10 days which including spotting before and after 5 days of menstrual flow Contraception: none HPV vaccine: No Last Pap: 04/2022 - could not read and supposed to go for repeat but did not HPV: unknown History of abnormal pap: No - has only had a few Last mammogram: never Sexually active: No History of STDS: None History of fibroids: Yes - on MRI see below History of ovarian cyst: Yes Hot flashes: No Night sweats: No MRI 09/08/2021 (ordered by GI [facility] to check for fistulas) IMPRESSION: No active small bowel inflammation. No evidence of fistula. Several uterine fibroids including 2.2 cm probable submucosal/intracavitary fibroid. C-shaped, tubular structure in left adnexa, likely hematosalpinx. Subcentimeter hemorrhagic focus in each ovary, likely hemorrhagic cysts. 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 History LMP: 12/19/2021 (Exact Date), Having periods Age at Menarche: Age at First : Age at Menopause: Telephone Station Installer History Comments: Sexual Activity: Not Currently; No partner data on record Contraception: None PAST MEDICAL HISTORY Diagnosis Date Acute gastritis without mention of hemorrhage Essential hypertension, benign Nausea alone Paroxysmal tachycardia, unspecified (HCC) Regional enteritis of small intestine with large intestine (HCC) Crohn's disease, s/p colectomy 1990 PAST SURGICAL HISTORY Procedure Laterality Date EGD TRANSORAL BIOPSY SINGLE/MULTIPLE 01/02/10 ILEOSTOMY/JEJUNOSTOMY,NONTUBE 02/10/2002 loop ileostomy PRCTECT COMPL W/STOT/TOT COLCT W/GARMENT PARTS CUTTER MACHINE BXS subtotal colectomy with ileoproctostomy FAMILY HISTORY Problem Relation Age of Onset Hyperlipidemia Mother Hypertension Mother Parkinson s Disease Father Dementia Father Ischemic Heart Disease Paternal Grandmother Stroke Maternal Aunt Heart Maternal Aunt SOCIAL HISTORY Social History Tobacco Use Smoking status: Never Smoker Smokeless tobacco: Never Used Vaping Use Vaping Use: Never used Substance Use Topics Alcohol use: Yes Comment: rarely Drug use: No REVIEW OF SYSTEMS Abdomen: No abdominal pain, nausea, vomiting, diarrhea, or constipation. No bloating, early satiety, indigestion, or increased flatulence. Bladder: No dysuria, gross hematuria, urinary frequency, urinary urgency, or incontinence. Breast: No breast lumps, nipple d/c, overlying skin changes, redness or skin retraction. Allergies and current medication updated:Yes EXAM: BP 98/68 Ht 5' 3.5 (1.61m) Wt 118 lb 9.6 oz (53.8kg) LMP 12/19/2021 BMI 20.68 kg/(m^2). GENERAL: pleasant, female in no apparent distress HEENT: Normocephalic, atraumatic, mucus membranes moist and no lesions NECK: Supple, full range of motion, no adenopathy and thyroid normal DERMATOLOGY: Normal, without lesions, non-icteric and non-hirsute BREAST: soft, non-tender, symmetric, no dominant mass, normal nipple-areolar complex, no lymphadenopathy and no nipple discharge CHEST: Normal inspiratory effort ABDOMEN: soft, non-tender, no masses and ileostomy bag to right abdomen PELVIC: external genitalia normal, normal Bartholin's glands, urethra, Verplanck's glands, no vulvar lesions, good vaginal support, normal appearing perineal body and perianal region. Unable to locate cervix due to pt discomfort with XS speculum. Copious amount odorous thin pink renteria liquid filling entire vaginal vault - appears to fill vault from posterior vagina. BIMANUAL: uterus normal size, shape and consistency, no adnexal masses and non-tender NEURO: alert and oriented x3,exam grossly non-focal EXTREMITIES: normal ASSESSMENT/PLAN: 1) Health maintenance: Pap not done - pt unable to tolerate exam Mammogram ordered. Nutrition, exercise and routine health maintenance exams reviewed 2. Vaginal discharge - ICD9: 623.5, ICD10: N89.8 Copious amount odorous thin pink renteria liquid - ANAEROBE CULTURE - WOUND CULTURE AND GRAM STAIN - CONSULT TO INFECTIOUS DISEASES - Dr Pradhan Culture results from 04/2021 scanned into EHR 3. Vaginal odor - ICD9: 625.8, ICD10: N89.8 - ANAEROBE CULTURE - WOUND CULTURE AND GRAM STAIN - CONSULT TO INFECTIOUS DISEASES 4. Ovarian cyst, bilateral - ICD9: 620.2, ICD10: N83.201, N83.202 - sub-centimeter bilaterally MRI 5. Uterine leiomyoma, unspecified location - ICD9: 218.9, ICD10: D25.9 2.2 cm probable submucosal/intracavitary per MRI 6) Contraception: none. Contraceptive options reviewed and information provided. 7) STD screening: Declined STD check. 8) Follow up one year or sooner as needed Kaelyn Stein APRN.TONYA documented in this encounter [facility] 09-07-2021 Note HNO ID: [id number] Author: Genet Rodriguez RN Service: ? Author Type: Registered Nurse Type: Progress Notes Filed: 09/07/2021 7:46 PM Note Text: PATIENT EDUCATION RADIOLOGY TOPIC: Procedure/Surgery: Enterography READINESS TO LEARN COGNITIVE ABILITY: Alert and oriented MOTIVATION TO LEARN: Eager Interested FAMILY SUPPORT: High - Very involved in pt care INSTRUCTION PROVIDED TO: Patient PATIENT LEARNS BEST BY: Individual Instruction Verbal Instruction FACTORS AFFECTING LEARNING: None PHYSICAL LIMITATIONS AFFECTING LEARNING: None LEARNING RESPONSE Procedure: Angio Procedures: Radiology Procedures: Enterography METHOD OF INSTRUCTION: Individual instruction Verbal instruction PATIENT / FAMILY RESPONSE: Performs skill independently FOLLOW-UP PLAN: Complete - No need for follow-up SUPPLEMENTAL MATERIAL: N/A REFERRAL (RECOMMENDATION): None Electronically Signed By Genet Rodriguez RN [facility] 09-07-2021 Note HNO ID: [id number] Author: Genet Rodriguez RN Service: Radiology Author Type: Registered Nurse Type: Progress Notes Filed: 09/07/2021 7:15 PM Note Text: Radiology Service Progress Note DATE OF SERVICE: September 07, 2021 TIME: 7:11 PM PATIENT WEIGHT: 117LBS PATIENT IDENTITY VERIFICATION COMPLETED USING TWO (2) STANDARD IDENTIFIERS: Name and Date of confirmed by patient verbally and Name and Date of confirmed by identification band. FALL SCREENING: Has the patient had 2 falls in the last year or 1 fall with injury or currently using an Ambulatory Assistive Device (Walker, Cane, Wheelchair, Crutches, etc.)? No PATIENT GENDER DATA: Female. status: : No status: NO. ALLERGIES: Reviewed and unchanged CONTRAST ALLERGY: No EXAM: MRI - CONTRAST TYPE: GROUP II IV SITE: Ambulatory: A peripheral IV was started in the Right antecubital site with a Angio cath: 22 gauge. and A Saline lock was inserted per protocol IV SITE APPEARANCE: Clean,Dry and Intact SIGNATURE: Genet Rodriguez RN PATIENT NAME: Evan Doran DATE: September 07, 2021 TIME: 7:11 PM Radiology Service Progress Note PATIENT NAME: Evan Doran DATE OF SERVICE: September 07, 2021 TIME: 7:15 PM PATIENT IDENTITY VERIFICATION COMPLETED USING TWO (2) STANDARD IDENTIFIERS: Name and Date of confirmed by patient verbally and Name and Date of confirmed by identification band. PATIENT GENDER DATA: Female. status: : No status: NO. PATIENT RELEVANT IMPLANT DATA REVIEWED: Not Applicable ALLERGIES: Reviewed and unchanged MEDICATIONS REVIEWED: YES PROCEDURE: Enterography Oral contrast prep: Breeza (2) 500ml bottles per protocol and Glucagon 1 mg IV IV SITE: Ambulatory: A peripheral IV was started in the Right antecubital site with a Angio cath: 22 gauge. and A Saline lock was inserted per protocol PERIPHERAL IV ACCESS: Discontinued PATIENT TOLERATED PROCEDURE: Without incident. PATIENT DISCHARGED TO: Home/Self Care SIGNED BY: Genet Rodriguez RN September 07, 2021 7:15 PM [facility] 09-07-2021 Note HNO ID: [id number] Author: RT Abelino(R) Service: Radiology Author Type: Technologist Type: Progress Notes Filed: 09/07/2021 8:48 PM Note Text: Radiology Service Progress Note PATIENT NAME: Evan Doran DATE OF SERVICE: September 07, 2021 TIME: 8:47 PM PATIENT IDENTITY VERIFICATION COMPLETED USING TWO (2) IDENTIFIERS: Name and Date of confirmed by patient verbally and Name and Date of confirmed by identification band. FALL SCREENING: Has the patient had 2 falls in the last year or 1 fall with injury or currently using an Ambulatory Assistive Device (Walker, Cane, Wheelchair, Crutches, etc.)? No PATIENT GENDER DATA: Female. status: : No status: NO. PATIENT RELEVANT IMPLANT DATA REVIEWED: Yes RADIOLOGY DEPARTMENT: MR; Exam(s) Completed: Body: enterography w/wo PERIPHERAL IV DATA: Site assessment: Clean,Dry and Intact, Site disposition Left in for next appointment SIGNED BY: RT Abelino(R) September 07, 2021 8:47 PM [facility] 09-07-2021 Note Education (MRIQ) EVAN DORAN ([id number]) 1975 F Date Time Provider Department 09/07/21 GENET RODRIGUEZ MRIQ Reason for Visit: Patient Education [91] During your visit today, we recorded the following information about you: Allergies As of Date: 09/07/2021 Noted Allergy Reaction CORN 12/12/2009 9 - Itching PEANUTS 12/12/2009 9 - Itching PERCOCET (OXYCODONE-ACETAMINOPHEN)12/21/19 10 Date Reviewed: 09/07/2021 Reviewed by: Genet Rodriguez RN - Fully Assessed Prescriptions as of 09/07/2021 - TRIAMCINOLONE ACETONIDE 0.1 % OINTMENT apply q daily for two weeks then twice per week - ATENOLOL 50 MG TAB Take one(1) tablet daily. Encounter Status:Closed by GENET RODRIGUEZ on 09/07/21 [facility] 08-09-2021 Note HNO ID: [id number] Author: Orion Morse MD Service: ? Author Type: Physician Type: Progress Notes Filed: 08/17/2021 10:22 AM Note Text: DEPARTMENT OF GASTROENTEROLOGY - NEW PATIENT/CONSULT REASON FOR VISIT Evan Doran is a 46 year old female who is scheduled for Crohn's Disease. 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 She reports feeling well from the Crohn's perspective ever since, been doing well with ileostomy, has not followed up with a GI or a primary physician in the last several years. Patient has been experiencing chronic brownish red vaginal discharge last several years, seen in OB in [place] - incomplete resolution, with flagyl. One of the vaginal swab culture reported multiple organisms which prompted referral to the GI clinic to rule out fistula. No fistulous track was identified on genital exam with OB. Crohn's medication: In early remicade and then 6-MP No meds since 2002 surgery. Ileostomy: functioning well, fluctuating consistency, stable output, did not measure, changes 4-6 hours depending on diet intake, report compliance with dietary modification. -Denies ever having an ileoscopy. 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 (Patient not taking: Reported on 08/09/2021) 30 11 No current facility-administered medications for this visit. ALLERGIES Allergen Reactions - Porcupine Itching - Peanuts Itching - Percocet [Oxycodone* Social History Tobacco Use - Smoking status: Never Smoker - Smokeless tobacco: Never Used Substance Use Topics - Alcohol use: Yes Comment: rarely - Drug use: No FAMILY HISTORY (grandparents, parents, brothers, sisters, aunts, or uncles) Liver Problems: No Ulcerative Colitis: Yes Crohn's Disease: No Colon Cancer: No Colon Polyps: No IBS: No Celiac disease: No Bleeding Disorders: No GI SPECIFIC REVIEW OF SYMPTOMS Difficulty swallowing / foods sticking in throat: no Heartburn: no Hoarseness: no Chronic cough: yes Regurgitation: no Chest pain: no Filling up quickly at meals:no Loss of appetite: no Nausea: no Vomiting: no Abdominal pain: no Recent change in bowel movements: no Bloody or black, bowel movements: no Constipation: no Diarrhea: yes Loss of control of bowel movements: no Night sweats: no Fever: no Chills: no Thought or memory problems: no Fluid in abdomen (ascites): no Prominent leg swelling: no Vomiting blood: no Recent change in weight: No PAST MEDICAL HISTORY Colon polyps: yes Colon cancer: no Other cancer: no Radiation / Chemotherapy: no Crohn's disease / Ulcerative colitis: yes High cholesterol or triglycerides: no Ulcers: yes Gallstones: no Hepatitis / Jaundice: no Heart Disease: no Lung Disease: no Liver problems: no Thyroid disease: no Kidney stones: yes Pancreatitis: no Diabetes: no Arthritis: yes Rheumatic fever: no Gastrointestinal bleeding: no Depression or other mental illness: no Other personal illness: vaginal discharge PHYSICAL EXAMINATION BP 114/76 Pulse 88 Temp (Src) 98.4 (Temporal) Ht 5' 4 (1.63m) Wt 117 lb (53.1kg) SpO2 97% LMP 12/25/2009 BMI 20.07 kg/(m2). General Appearance: Well appearing, alert, in no acute distress, well-hydrated, Lean body habitus. Eyes: PERRLA, conjunctiva and sclera normal Oropharynx: Lips, tongue, and oral mucosa normal. There is no thrush or oral ulcers. Lungs:breath sounds clear to auscultation bilaterally, no crackles, rhonchi, or wheezes Heart: regular rate and rhythm, no murmurs or gallops. Abdomen: not distended, scaphoid, midline scar, + end ileostopy liquidy collections. normal bowel sounds, soft and depressible, no guarding or rebound, no palpable mass, no organomegaly Rectal exam: Deferred. Extremities: no cyanosis or edema Skin: no jaundice, no spider angiomas, no palmar erythema Neuro:alert, oriented x 3, pleasant and in no acute dis (more content not included)... [facility] Evaluation note Diagnosis Crohn's disease of large intestine with fistula (HCC) Regional enteritis of large intestine Fistula of stomach and duodenum (CODE) [facility] Encounter for gynecological examination with abnormal finding- Primary Routine gynecological examination Vaginal discharge Leukorrhea, not specified as infective Vaginal odor Unspecified symptom associated with female genital organs Ovarian cyst, bilateral Other and unspecified ovarian cyst Uterine leiomyoma, unspecified location Encounter for screening mammogram for breast cancer [facility] Diagnosis Irregular menstrual cycle Pelvic pain in female Unspecified symptom associated with female genital organs Dysmenorrhea documented in this encounter [facility] note* Diagnosis Pelvic pain in female- Primary Unspecified symptom associated with female genital organs Uterine leiomyoma, unspecified location Dysmenorrhea Menorrhagia with regular cycle Excessive or frequent menstruation Other iron deficiency anemia documented in this encounter [facility] noteNo assessment information availableWMain Campus Medical Center Work Phone: Reason for referral (narrative)No reason for referral information availableWMain Campus Medical Center Work Phone: Reason for Referral Specialty Diagnoses / Procedures Referred By Contac t Referred To Contact MR IMAGING Diagnoses Crohn's disease of large intestine with fistula (HCC) Fistula of stomach and duodenum (CODE) Procedures MRI PELVIS WO/W IVCON MRI PELVIS W/O & W/CONTRAST MATERIAL MRI ABDOMEN W/O & W/CONTRAST MATERIAL sIis Aguirre (Historical) [address] [place] [address] Mr Imaging Referral ID Status Reason Start Date Expiration Date V isits Requested Visits Authorized [id number] Closed Auto-Generat ed Referral Clearance Not Met - Admin/Chairm an/Director Advise to Postpone/Res chedule or Not Proceed 08/23/2021 10/07/2021 1 1 Specialty Diagnoses / Procedures Referred By Contac t Referred To Contact MR IMAGING Diagnoses Crohn's disease of large intestine with fistula (HCC) Fistula of stomach and duodenum (CODE) Procedures MRI ABDOMEN WO/W IVCON MRI ABDOMEN W/O & W/CONTRAST MATERIAL Self Mr Imaging Referral ID Status Reason Start Date Expiration Date V isits Requested Visits Authorized [id number] Closed Auto-Generate d Referral 08/09/2021 09/08/2022 1 1 Specialty Diagnoses / Procedures Referred By Contac t Referred To Contact Infectious Diseases Diagnoses Vaginal discharge Vaginal odor Procedures CONSULT TO INFECTIOUS DISEASES OFFICE/OUTPATIENT [facility] 60-74 MINUTES Kaelyn Stein APRN.BLOOD BANK ATTENDANT [address] [place] [address] Referral ID Status Reason Start Date Expiration Date Visits Requested Visits Authorized [id number] Authorized PCP Requested Referral 01/11/2022 01/11/2023 1 1 Specialty Diagnoses / Procedures Referred By Karo cedeño Referred To Contact BR IMAGING Diagnoses Encounter for screening mammogram for breast cancer Procedures CARLIE SCREENING SCREENING MAMMOGRAPHY BI 2-VIEW BREAST INC Kaelyn Salgado, RIDING INSTRUCTOR.BLOOD BANK ATTENDANT [address] [place] [address] [facility] [address] [place] [address] Referral ID Status Reason Start Date Expiration Date Visits Requested Visits Authorized [id number] Authorized Auto-Generat ed Referral 01/11/2022 02/10/2023 1 1 Summary Purpose Family History No Family History Records FoundNo Family History Records Found Advance Directives No Advanced Directives Records FoundNo Advanced Directives Records Found Chief Complaint and Reason for Visit Chief Complaint Admit Date LABS December 27, 2024 7:11 am Additional Source Comments Source Comments (unrecognize d section and content) In the event this informatio n is protected by the Federal Confidentiality of Alcohol and Drug Abuse Patient Records regulations: The Federal rules restrict any use of the information to criminally investigate or prosecute any alcohol or drug abuse patient.[facility] HospitalIn the event this information is protected by the Federal Confidentiality of Alcohol and Drug Abuse Patient Records regulations: The Federal rules restrict any use of the information to criminally investigate or prosecute any alcohol or drug abuse patient.[facility] HospitalIn the event this information is protected by the Federal Confidentiality of Alcohol and Drug Abuse Patient Records regulations: The Federal rules restrict any use of the information to criminally investigate or prosecute any alcohol or drug abuse patient.[facility] HospitalIn the event this information is protected by the Federal Confidentiality of Alcohol and Drug Abuse Patient Records regulations: The Federal rules restrict any use of the information to criminally investigate or prosecute any alcohol or drug abuse patient.[facility] HospitalIn the event this information is protected by the Federal Confidentiality of Alcohol and Drug Abuse Patient Records regulations: The Federal rules restrict any use of the information to criminally investigate or prosecute any alcohol or drug abuse patient.[facility] HospitalIn the event this information is protected by the Federal Confidentiality of Alcohol and Drug Abuse Patient Records regulations: The Federal rules restrict any use of the information to criminally investigate or prosecute any alcohol or drug abuse patient.[facility] HospitalIn the event this information is protected by the Federal Confidentiality of Alcohol and Drug Abuse Patient Records regulations: The Federal rules restrict any use of the information to criminally investigate or prosecute any alcohol or drug abuse patient.[facility] Reason for Visit (unrecogniz ed section and content) Specialty Diagnoses / Procedures Referred By Karo t Referred To Contact MR IMAGING Diagnoses Crohn's disease of large intestine with fistula (HCC) Fistula of stomach and duodenum (CODE) Procedures MRI PELVIS WO/W IVCON MRI PELVIS W/O & W/CONTRAST MATERIAL MRI ABDOMEN W/O & W/CONTRAST MATERIAL Isis Aguirre (Historical) [address] 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 Pelvic pain Reason Comments Follow Up Tests Results INFORMATION SOURCE (unrecogn ized section and content) DATE CREATED AUTHOR 03/02/2022 [facility] DATE CREATED AUTHOR AUTHOR'S ORGANIZ ATION 01/01/2025 [facility] Care Teams (unrecognized sec tion and content) Team Status: Active Member Role Status Dates Tina Miller MD Family Provider Active Dr. Lisseth Queen DO Primary Care Provider Active Team Status: Inactive Member Role Status Dates Dr. Lisseth Queen DO Primary Care Provide r, Attending Provider, Referring Provider Active Team Status: Active Member Role/Relationship Status Dates Dr. Lisseth Queen DO Primary Care Provider Active Team Status: Inactive Member Role/Relationship Status Dates Dr. Lisseth Queen DO Primary Care Provider Active Start: December 27, 2024 End: December 27, 2024 CHARLA Perez Attending Provider Active art: December 27, 2024 End: December 27, 2024 CHARLA Perez Referring Provider Active art: December 27, 2024 End: December 27, 2024 Goals (unrecognized section and content) Goals may be documented in a n alternate sectionGoals may be documented in an alternate section FOR RECORDS PERTAINING TO PATIENTS WHO ARE OR HAVE BEEN ENROLLED IN A CHEMICAL DEPENDENCY/SUBSTANCEABUSE PROGRAM, SOME INFORMATION MAY BE OMITTED. This clinical summary was aggregated from multiple sources. Caution should be exercised in using it in the provision of clinical care. This summary normalizes information from multiple sources, and as a consequence, information in this document may materially change the coding, format and clinical context of patient data. In addition, data may be omitted in some cases. CLINICAL DECISIONS SHOULD BE BASED ON THE PRIMARY CLINICAL RECORDS. [facility] [employer] [facility]. provides no warranty or guarantee of the accuracy or completeness of information in this document.
[2025-06-17 13:42] LABS: CRP < 3.00 mg/L (0.0-3.0)
== END | disposition home or self-care (01) ==
LOC: LAB 11:50
PROVIDERS: PCP Family Medicine; Referring Provider Family Medicine; Visit Provider Family Medicine
DX: K50.90 Crohn's disease, unspecified, without complications (principal)
CPT/HCPCS: 36415; 85652; 86140